=== PATIENT | male | born 1940 | race Caucasian/White ===

== ENCOUNTER 2017-08-02 07:57 | Emergency (ER) | payer MEDICARE, BC ==
[2017-08-02] MEDS ORDERED: Aspirin Low Dose CHEW TAB* 81 MG PO ONE (08:15)
[2017-08-02 08:46] LABS: Hematocrit 44 % (42-52); Hemoglobin 14.6 g/dl (14.0-18.0); Mean Corpuscular HGB Conc 33 g/dl (31-36); Mean Corpuscular Hemoglobin 32 pg (27-31); Mean Corpuscular Volume 97 fL (80-94); Mean Platelet Volume 7 um3 (7.4-10.4); Red Blood Count 4.52 10^6/ul (4.0-5.4); Red Cell Distribution Width 14 % (10.5-15); White Blood Count 9.2 10^3/ul (3.5-10.8)
[2017-08-02 09:02] LABS: Albumin 3.8 g/dL (3.2-5.2); BUN/Creatinine Ratio 18.7 (8-20); Calcium 9.2 mg/dL (8.6-10.3); EGFR African American 86.6 (>60); EGFR Non-African American 67.4 (>60); Globulin 3.1 g/dL (2-4); Magnesium 1.7 mg/dL (1.9-2.7); Potassium 4.6 mmol/L (3.5-5.0); Total Bilirubin 0.9 mg/dL (0.2-1.0); Total Protein 6.9 g/dL (6.4-8.9)
--- NOTE | 2017-08-02 09:07 | RAD ---
INDICATION: Chest pain COMPARISON: Most recent comparison chest x-ray July 21, 2014 TECHNIQUE: PA and lateral views of the chest were obtained. FINDINGS: Stable postoperative findings include sternotomy wires and surgical clips overlying the mediastinum. The heart and mediastinum are normal in size and contour. The lungs are grossly clear. There is no evidence of large pleural effusion. Visualized bones are normal for the patient's age. There is no radiographic evidence of free air beneath the diaphragm IMPRESSION: No radiographic evidence of acute cardiopulmonary disease.
[2017-08-02 09:54] LABS: TSH (Thyroid Stimulating Horm) 3.17 mcIU/mL (0.34-5.60)
[2017-08-02] MEDS ORDERED: Nitroglycerin TAB 0.4 MG* 0.4 MG TAB SL PRN (10:03)
[2017-08-02] MEDS ORDERED: Magnesium Oxide TAB* 400 MG PO ONE (10:04)
[2017-08-02 12:02] VITALS: BP 162/90
--- NOTE | 2017-08-02 12:07 | ED ---
Junaid Gonzlaez Abhishek, scribed for Gerson Ramírez MD on 08/02/17 at 0830 . Complex/Multi-Sys Presentation - HPI Summary HPI Summary: This patient is a 77 year old M presenting to [facility] accompanied by female with c /o of chest pain, [facility] and abd pain since 07/31/17 0800. Pt states symptoms similar previous [place] 3 years ago. Pain is described as intermittent in intensity but general discomfort present constantly. The patient rates the pain 2/10 in severity. Symptoms aggravated by nothing. Symptoms alleviated by nothing. Pt states that the pain does not radiate and reports he has had a catheter inserted previously as well a quad bypass (3 years ago), but no stents. Patient also reports indigestion, and decreased appetite. Patient denies N/V, diaphoresis. Pt has taken the following medication(s): Aspirin. - History Of Current Complaint Hx Obtained From: Patient Onset/Duration: Gradual Onset, Lasting Days - since 07/31/17 0800, Still Present Timing: Constant - general discomofrt, Intermittent, Lasting: Severity Currently: Mild Severity Initially: Mild Aggravating Factor(s): nothing Alleviating Factor(s): nothing Associated Signs And Symptoms: Positive: Chest Pain - chest "burning", Abdominal Pain - "upset stomach". Negative: Back Pain - Allergies/Home Medications Allergies/Adverse Reactions: Allergies Allergy/AdvReac Type Severity Reaction Status Date / Time Levofloxacin [From Levaquin] Allergy Anaphylatic Verified 08/02/17 08:02 Shock Home Medications: Home Medications metFORMIN* 100 mg PO QPM 08/02/17 [History Confirmed 08/02/17] PMH/Surg Hx/FS Hx/Imm Hx Endocrine/Hematology History: Reports: Hx Diabetes, Other Endocrine/ Hematological Disorders - DISTAL PANCREATECTOMY Cardiovascular History: Reports: Hx Congestive Heart Failure, Hx Hypertension - ON MEDICATION FOR Denies: Hx Pacemaker/ICD Respiratory History: Reports: Hx Asthma - HX OF, Hx Seasonal Allergies, Hx Sleep Apnea - CPAP user, Other Respiratory Problems/Disorders - smoker many years/ quit s, sleep apnea CPAP GI History: Reports: Hx Diverticulosis, Other GI Disorders - POLYPECTOMY (COLON) History: Reports: Other Problems/Disorders - TURP Denies: Hx Renal Disease Musculoskeletal History: Reports: Hx Arthritis, Hx Back Problems, Hx Orthopedic Injury - (left) should tendon repair-unsuccessful 2002, Other Musculoskeletal History - ROTATOR CUFF REPAIN Sensory History: Reports: Hx Contacts or Glasses, Hx Vision Problem - vision "dimming" per Pt (mostly at night), Other Sensory Impairments - 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 Denies: Hx Hearing Aid Opthamlomology History: Reports: Hx Contacts or Glasses, Hx Vision Problem - vision "dimming" per Pt (mostly at night), Other Sensory Impairments - 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 Neurological History: Reports: 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, Other Neuro Impairments/Disorders - 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, lumbar stenosis Psychiatric History: Denies: Hx Panic Disorder - Cancer History Cancer Type, 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 - Surgical History Surgery Procedure, Year, and Place: 1958 SPINAL FUSION L4-S1,1996 DECOMPRESSIVE LAMINECTOMY, L1-L4, [facility]; Cyst removed from right thumb at [facility] POLYPECTOMY,1999 BLADDER DIVERTICULUM EXCISION, [id number] TRANSURETHRAL RESECTION OF PROSTATE, [facility] COLONOSCOPY, [id number] SPERMATOCELE EXCISION, [id number] LEFT SHOULDER ROTATOR CUFF REPAIR AND DECOMPRESSION, [id number] COLONOSCOPY WITH POLYPECTOMY, [id number] PANCREAS BIOPSY, 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 Hx Anesthesia Reactions: No Infectious Disease History: No Infectious Disease History: Reports: Hx Shingles Denies: Traveled Outside the US in Last 30 Days - Family History Known Family History: Positive: Cardiac Disease - [place] (son), Hypertension - Mother, Other - Colon cancer (Father) - Social History Alcohol Use: None Substance Use Type: Reports: None Smoking Status (MU): Former Smoker Type: Cigarettes Amount Used/How Often: 2 PPD X 30 + YEARS Have You Smoked in the Last Year: No Review of Systems Negative: Skin Diaphoresis Eyes: Negative ENT: Negative Positive: Chest Pain - chest "burning" Respiratory: Negative Positive: Abdominal Pain - "upset stomach", Other - Decreased appetite, and indigestion. Negative: Vomiting, Nausea Genitourinary: Negative Positive: Other - Negative back pain Skin: Negative Positive: Headache Psychological: Normal All Other Systems Reviewed And Are Negative: Yes Physical Exam - Summary Physical Exam Summary: VITAL SIGNS: Reviewed. GENERAL: ~Patient is a well-developed and nourished (MALE) who is lying comfortable in the stretcher. ~Patient is not in any acute respiratory distress. HEAD AND FACE: No signs of trauma. ~No ecchymosis, hematomas or skull depressions. No sinus tenderness. EYES: PERRLA, EOMI x 2, No injected conjunctiva, no nystagmus. EARS: Hearing grossly intact. Ear canals and tympanic membranes are within normal limits. MOUTH: Oropharynx within normal limits. NECK: Supple, trachea is midline, no adenopathy, no JVD, no carotid bruit, no c- spine tenderness, neck with full ROM. CHEST: Symmetric, no tenderness at palpation LUNGS: Clear to auscultation bilaterally. No wheezing or crackles. CVS: Regular rate and rhythm, S1 and S2 present, no murmurs or gallops appreciated. ABDOMEN: Soft, non-tender. No signs of distention. No rebound no guarding, and no masses palpated. Bowel sounds are normal. EXTREMITIES: FROM in all major joints, no edema, no cyanosis or clubbing. NEURO: Alert and oriented x 3. No acute neurological deficits. Speech is normal and follows commands. SKIN: Dry and warm Triage Information Reviewed: Yes Vital Signs On Initial Exam: Initial Vitals Temp Pulse Resp BP Pulse Ox 97.8 F 62 16 179/109 98 08/02/17 07:58 08/02/17 07:58 08/02/17 07:58 08/02/17 07:58 08/02/17 07:58 Vital Signs Reviewed: Yes - [place] Coma Scale Coma Scale Total: 15 Diagnostics - Vital Signs Vital Signs Temp Pulse Resp BP Pulse Ox 08/02/17 08:11 74 206/153 95 08/02/17 08:10 124 92 08/02/17 07:58 97.8 F 62 16 179/109 98 - Laboratory Lab Results: Lab Results 08/02/17 08/02/17 08/02/17 Range/Units 08:32 08:32 08:32 WBC 9.2 (3.5-10.8) 10^3/ul RBC 4.52 (4.0-5.4) 10^6/ul Hgb 14.6 (14.0-18.0) g/dl Hct 44 (42-52) % MCV 97 H (80-94) fL MCH 32 H (27-31) pg MCHC 33 (31-36) g/dl RDW 14 (10.5-15) % Plt Count 405 (150-450) 10^3/ul MPV 7 L (7.4-10.4) um3 Neut % (Auto) 73.4 (38-83) % Lymph % (Auto) 11.8 L (25-47) % [place] % (Auto) 10.5 H (1-9) % Eos % (Auto) 3.1 (0-6) % Baso % (Auto) 1.2 (0-2) % Absolute Neuts (auto) 6.7 (1.5-7.7) 10^3/ul Absolute Lymphs (auto) 1.1 (1.0-4.8) 10^3/ul Absolute Monos (auto) 1.0 H (0-0.8) 10^3/ul Absolute Eos (auto) 0.3 (0-0.6) 10^3/ul Absolute Basos (auto) 0.1 (0-0.2) 10^3/ul Absolute Nucleated RBC 0.01 10^3/ul Nucleated RBC % 0.1 APTT 32.9 (26.0-36.3) seconds Sodium (133-145) mmol/L Potassium (3.5-5.0) mmol/L Chloride (101-111) mmol/L Carbon Dioxide (22-32) mmol/L Anion Gap (2-11) mmol/L BUN (6-24) mg/dL Creatinine (0.67-1.17) mg/dL Est GFR ( Amer) (>60) Est GFR (Non-Af Amer) (>60) BUN/Creatinine Ratio (8-20) Glucose (70-100) mg/dL Lactic Acid (0.5-2.0) mmol/L Calcium (8.6-10.3) mg/dL Magnesium (1.9-2.7) mg/dL Total Bilirubin (0.2-1.0) mg/dL AST (13-39) U/L ALT (7-52) U/L Alkaline Phosphatase (34-104) U/L Total Creatine Kinase (10-223) U/L CK-MB (CK-2) (0.6-6.3) ng/mL Troponin I (<0.04) ng/mL B-Natriuretic Peptide 28 ( - 100) pg/mL Total Protein (6.4-8.9) g/dL Albumin (3.2-5.2) g/dL Globulin (2-4) g/dL Albumin/Globulin Ratio (1-3) TSH (0.34-5.60) mcIU/mL 08/02/17 08/02/17 Range/Units 08:32 08:32 WBC (3.5-10.8) 10^3/ul RBC (4.0-5.4) 10^6/ul Hgb (14.0-18.0) g/dl Hct (42-52) % MCV (80-94) fL MCH (27-31) pg MCHC (31-36) g/dl RDW (10.5-15) % Plt Count (150-450) 10^3/ul MPV (7.4-10.4) um3 Neut % (Auto) (38-83) % Lymph % (Auto) (25-47) % [place] % (Auto) (1-9) % Eos % (Auto) (0-6) % Baso % (Auto) (0-2) % Absolute Neuts (auto) (1.5-7.7) 10^3/ul Absolute Lymphs (auto) (1.0-4.8) 10^3/ul Absolute Monos (auto) (0-0.8) 10^3/ul Absolute Eos (auto) (0-0.6) 10^3/ul Absolute Basos (auto) (0-0.2) 10^3/ul Absolute Nucleated RBC 10^3/ul Nucleated RBC % APTT (26.0-36.3) seconds Sodium 129 L (133-145) mmol/L Potassium 4.6 (3.5-5.0) mmol/L Chloride 98 L (101-111) mmol/L Carbon Dioxide 23 (22-32) mmol/L Anion Gap 8 (2-11) mmol/L BUN 20 (6-24) mg/dL Creatinine 1.07 (0.67-1.17) mg/dL Est GFR ( Amer) 86.6 (>60) Est GFR (Non-Af Amer) 67.4 (>60) BUN/Creatinine Ratio 18.7 (8-20) Glucose 274 H (70-100) mg/dL Lactic Acid 2.9 H* (0.5-2.0) mmol/L Calcium 9.2 (8.6-10.3) mg/dL Magnesium 1.7 L (1.9-2.7) mg/dL Total Bilirubin 0.90 (0.2-1.0) mg/dL AST 21 (13-39) U/L ALT 21 (7-52) U/L Alkaline Phosphatase 69 (34-104) U/L Total Creatine Kinase 101 (10-223) U/L CK-MB (CK-2) 7.1 H (0.6-6.3) ng/mL Troponin I 0.00 (<0.04) ng/mL B-Natriuretic Peptide ( - 100) pg/mL Total Protein 6.9 (6.4-8.9) g/dL Albumin 3.8 (3.2-5.2) g/dL Globulin 3.1 (2-4) g/dL Albumin/Globulin Ratio 1.2 (1-3) TSH 3.17 (0.34-5.60) mcIU/mL Result Diagrams: 08/02/17 08:32 08/02/17 08:32 Lab Statement: Any lab studies that have been ordered have been reviewed, and results considered in the medical decision making process. - Radiology Chest x-ray Radiology Interpretation Completed By: Radiologist - CXR reveals, per radiologist, No radiographic evidence of acute cardiopulmonary disease. ED physician has reviewed this radiology report and agrees. - EKG 0819 EKG Interpretation: 0819: Sinus rhythm, 63 beats per minute, no st elevation, and normal axis Complex Multi-Symp Course/Dx Assessment/Plan: In the ED course an IV access was obtained. Patient was placed in a vehicle monitor technician. Patient was given an ASA since he reports this are the same symptoms as when he had his [place] 3 years ago. Patient was given NTG for the CP. Labs without any significant abnormality except for Na 129, glucose 274, magnesium 1.7 for which he was given magnesium po. Troponin #1: and Troponin # 2 (4 hours later): EKG shows a NSR w/o ST elevations. CXR impression: No acute pathology. Initially patient was hypertensive and BP now is 151/82. Because comorbidities patient needs to be r/o ACS. I discuss my physical exam, findings and test results with Dr. Maki from the hospitalist services and she agrees to admit patient to his services. Patient is hemodynamically stable alert and oriented x 3. After patient accepted for admission he reports that he does not want to stay. He will sign AMA. I extensively discussed with the patient the benefits and risk of leaving AMA. I also discussed the alternatives to leaving AMA, however, the patient still insist to leave the hospital AMA.. The primary nurse and the charge nurse also strongly recommended that the patient should not leave AMA. Patient understands the risk of leaving AMA, which includes but is not restricted to . Patient is Alert and oriented times three and patient verbalizes understanding. Patient has full capacity and is cognitively intact. Patient signed the AMA form. Patient was also advised to return to ED if he changes his mind or if the symptoms worsen or other symptoms appear. Patient understands and agrees. - Diagnoses Differential Diagnoses/HQI/PQRI: Cardiac Ischemia, Other - ACS, angina, pulmonary edema Provider Diagnoses: CP r/o ACS, Left against medical advice - Physician Notifications Discussed Care Of Patient With: Avani Mercedes - Provider accepts patient care Time Discussed With Above Provider: 10:00 Instructed by Provider To: Admit As Inpatient Discharge - Discharge Plan Condition: Stable Disposition: [facility]MITTED TO [facility] Patient Education Materials: Against Medical Advice (ED) Referrals: Brian Gardner MD [Primary Care Provider] - The documentation as recorded by the Junaid white Abhishek accurately reflects the service I personally performed and the decisions made by me, Gerson Ramírez MD.
== END 2017-08-02 12:24 | disposition short-term general hospital (02) ==
LOC: ED 07:57 → MEDTELE 10:20 → UNDOADMOB 10:20 → ED 12:24
DX: R07.9 Chest pain, unspecified (principal); R51 Headache; Z87.891 Personal history of nicotine dependence
CPT/HCPCS: 36415; 71020; 80053; 82550; 82553; 83605; 83735; 83880; 84443; 84484; 85025; 85730; 93005; 99284; A9270-GY

== ENCOUNTER 2019-07-28 15:54 | Emergency (ER) | payer MEDICARE, BC ==
--- OUTSIDE RECORDS SUMMARY | 2019-07-28 16:24 | XMS REPORT ---
:1940 Author Organization [facility] Care Team Providers Name Role Phone Unavailable Unavailable Unavailable Problems This patient has no known problems. Allergies, Adverse Reactions, Alerts Allergy Allergy Status Severity Reaction(s) Onset Inactive Treating Comments Name Type Date Date Clinician Unknown None Active Unknown None Unknown No Known Allergies For This Patient Medications Ordered Filled Start Stop Current Ordering Indication Dosage Frequency Signature Comments Components Medication Medication Date Date Medication? Clinician (SIG) Name Name No Known No Known No None None None Medications Medications For This For This Patient Patient Procedures This patient has no known procedures. Results This patient has no known results.
--- OUTSIDE RECORDS SUMMARY | 2019-07-28 16:24 | XMS REPORT ---
:1940 Author Organization [facility] Care Team Providers Name Role Phone Unavailable [...]
--- OUTSIDE RECORDS SUMMARY | 2019-07-28 16:24 | XMS REPORT ---
:1940 Author Organization [facility] Care Team Providers Name Role Phone Unavailable [...]
--- NOTE | 2019-07-28 16:36 | ED ---
Lower Extremity - HPI Summary HPI Summary: Patient is a 79 y/o M presenting to the ED for a chief complaint of pain in the left calf for the last week. Patient recently drove to [place] and back approximately [address] about one week ago. He states the left calf pain began before his trip to [place]. Patient describes the left calf pain as occurring when exercising and walking with a cramping and tight sensation. The calf pain is not alleviated with stretching the calf. Patient admits he typically goes to the gym and exercises on an elliptical for 30 minutes, but has not done so for the last month. On triage, patient rates the pain as 5/10 in severity. Patient denies wounds or swelling in the left LE. PMHx is significant for a right shoulder problem, [place], and sarcoma of the right LE. PSHx is significant for a CABG 2 years ago. PCP was notified by the patient and sent the patient to [facility] for an US. Patient takes 81 mg aspirin, but denies taking Plavix. - History of Current Complaint Chief Complaint: EDExtremityLower Stated Complaint: LT LET PAIN PER PT Time Seen by Provider: 07/28/19 16:17 Hx Obtained From: Patient Mechanism Of Injury: Other - None Onset of Pain: Immediate Onset/Duration: Days Severity Initially: Moderate Severity Currently: Moderate Pain Intensity: 5 Pain Scale Used: 0-10 Numeric Timing: Intermittent, Lasting Days Character Of Pain: Spasmodic - Cramping and tightness Associated Signs And Symptoms: Negative: Swelling - Left LE Aggravating Factor(s): Movement Alleviating Factor(s): Nothing Able to Bear Weight: Yes - Allergies/Home Medications Allergies/Adverse Reactions: Allergies Allergy/AdvReac Type Severity Reaction Status Date / Time levofloxacin Allergy Severe Anaphylatic Verified 07/28/19 16:23 Shock Home Medications: Home Medications Omeprazole CAP (NF) [Prilosec CAP* 20 MG] 20 mg PO DAILY 07/28/19 [History Confirmed 07/28/19] Rosuvastatin (NF) [Crestor (NF)] 5 mg PO DAILY 07/28/19 [History Confirmed 07/28] metFORMIN* [Glucophage 500 MG TAB *] 1,000 mg PO BID 07/28/19 [History Confirmed 07/28/19] PMH/Surg Hx/FS Hx/Imm Hx Previously Healthy: Yes Endocrine/Hematology History: Reports: Hx Diabetes, Other Endocrine/ Hematological Disorders - DISTAL PANCREATECTOMY Cardiovascular History: Reports: Hx Angina, Hx Congestive Heart Failure, Hx Hypertension - ON MEDICATION FOR, Hx Myocardial Infarction Denies: Hx Pacemaker/ICD, Hx Valvular Heart Disease Respiratory History: Reports: Hx Asthma - HX OF, Hx Seasonal Allergies, Hx Sleep Apnea - CPAP user, Other Respiratory Problems/Disorders - smoker many years/ quit 90s, sleep apnea CPAP Denies: Hx Chronic Obstructive Pulmonary Disease (COPD) GI History: Reports: Hx Diverticulosis, Other GI Disorders - POLYPECTOMY (COLON) History: Reports: Other Problems/Disorders - TURP Denies: Hx Renal Disease Musculoskeletal History: Reports: Hx Arthritis, Hx Back Problems, Hx Orthopedic Injury - (left) should tendon repair-unsuccessful 2002, Other Musculoskeletal History - ROTATOR CUFF REPAIN Sensory History: Reports: Hx Contacts or Glasses, Hx Vision Problem - vision "dimming" per Pt (mostly at night), Other Sensory Impairments - 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 Denies: Hx Legally Blind, Hx Deafness, Hx Hearing Aid Opthamlomology History: Reports: Hx Contacts or Glasses, Hx Vision Problem - vision "dimming" per Pt (mostly at night), Other Sensory Impairments - 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 Denies: Hx Legally Blind EENT History: Denies: Hx Deafness Neurological History: Reports: 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, Other Neuro Impairments/Disorders - 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, lumbar stenosis Psychiatric History: Denies: Hx Panic Disorder - Cancer History Cancer Type, 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 - Surgical History Surgical History: Yes Surgery Procedure, Year, and Place: 1958 SPINAL FUSION L4-S1,1996 DECOMPRESSIVE LAMINECTOMY, L1-L4, [facility]; Cyst removed from right thumb at [facility] POLYPECTOMY,1999 BLADDER DIVERTICULUM EXCISION, [id number] TRANSURETHRAL RESECTION OF PROSTATE, [facility] 2010 COLONOSCOPY, [id number] SPERMATOCELE EXCISION, [id number] LEFT SHOULDER ROTATOR CUFF REPAIR AND DECOMPRESSION, [id number] COLONOSCOPY WITH POLYPECTOMY, [id number] PANCREAS BIOPSY, 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 Hx Anesthesia Reactions: No Infectious Disease History: No Infectious Disease History: Reports: Hx Shingles Denies: Hx Tuberculosis, History Other Infectious Disease, Traveled Outside the US in Last 30 Days - Family History Known Family History: Positive: Cardiac Disease - [place] (son), Hypertension - Mother, Other - Colon cancer (Father) - Social History Occupation: Retired Lives: With Family Alcohol Use: None Hx Substance Use: No Substance Use Type: Reports: None Hx Tobacco Use: Yes Smoking Status (MU): Former Smoker Type: Cigarettes Amount Used/How Often: 2 PPD X 30 + YEARS Have You Smoked in the Last Year: No Review of Systems Positive: Myalgia - Left calf. Negative: Edema - Left LE Positive: Other - Negative wounds on the left calf All Other Systems Reviewed And Are Negative: Yes Physical Exam - Summary Physical Exam Summary: Constitutional: Well-developed, Well-nourished, Alert. (-) Distressed Skin: Warm, Dry HENT: Normocephalic; Atraumatic Eyes: Conjunctiva normal Neck: Musculoskeletal ROM normal neck. (-) JVD, (-) Stridor, (-) Tracheal deviation Cardio: Rhythm regular, rate normal, Heart sounds normal; Intact distal pulses; The pedal pulses are 2+ and symmetric. Radial pulses are 2+ and symmetric. Pulmonary/Chest wall: Effort normal. (-) Respiratory distress, (-) Wheezes, (-) Rales Abd: Soft, (-) tenderness, (-) Distension, (-) Guarding, (-) Rebound Musculoskeletal: (-) Edema. Left pulses in the left leg are poor compared to right; left LE is warm and well perfused. Not able to palpate PT pulse, bounding in DP pulse in the left calf. Right PT pulse intact. Neuro: Alert, Oriented x3 Psych: Mood and affect Normal Triage Information Reviewed: Yes Vital Signs On Initial Exam: Initial Vitals Temp Pulse Resp BP Pulse Ox 98.3 F 63 16 159/95 96 07/28/19 15:59 07/28/19 15:59 07/28/19 15:59 07/28/19 15:59 07/28/19 15:59 Vital Signs Reviewed: Yes Procedures - Sedation Patient Received Moderate/Deep Sedation with Procedure: No Diagnostics - Vital Signs Vital Signs Temp Pulse Resp BP Pulse Ox 07/28/19 15:59 98.3 F 63 16 159/95 96 - Laboratory Result Diagrams: 07/28/19 16:39 07/28/19 16:39 Lab Statement: Any lab studies that have been ordered have been reviewed, and results considered in the medical decision making process. - Radiology Venous Doppler Study Radiology Interpretation Completed By: Radiologist Summary of Radiographic Findings: Venous Doppler Study IMPRESSION: NO LEFT LOWER EXTREMITY DEEP VEIN THROMBOSIS. Reviewed by Dr. Smith. - EKG 16:36 Cardiac Rate: NL - 60 BPM EKG Rhythm: Sinus Rhythm ST Segment: Normal Ectopy: None Summary of EKG Findings: An EKG at 16:36 reveals 60 BPM with normal sinus rhythm , nml axis, nml intervals. No STEMI. No acute changes. Nonspecific intraventricular conduction delay which is not new compared to prior EKG on . Reviewed and interpreted by Dr. Smith. Lower Extremity Course/Dx - Course Course Of Treatment: Patient is a 79 y/o M presenting to the ED for a chief complaint of pain in the left calf for the last week. Patient recently drove to [place], [place] and back approximately [address] about one week ago. He states the left calf pain began before his trip to [place], [place]. Patient describes the left calf pain as occurring when exercising and walking with a cramping and tight sensation. The calf pain is not alleviated with stretching the calf. Patient admits he typically goes to the gym and exercises on an elliptical for 30 minutes, but has not done so for the last month. On triage, patient rates the pain as 5/10 in severity. Patient denies wounds or swelling in the left LE. PMHx is significant for a right shoulder problem, [place], and sarcoma of the right LE. PSHx is significant for a CABG 2 years ago. PCP was notified by the patient and sent the patient to [facility] for an US. Patient takes 81 mg aspirin, but denies taking Plavix. On exam, left pulses in the left leg are poor compared to right; left LE is warm and well perfused. Not able to palpate PT pulse, bounding in DP pulse in the left calf. Right PT pulse intact. In the ED course , patient was given iodixanol 125 ml IV. An EKG at 16:36 reveals 60 BPM with normal sinus rhythm, nml axis, nml intervals. No STEMI. No acute changes. Nonspecific intraventricular conduction delay which is not new compared to prior EKG on 08/02/17. Venous Doppler Study IMPRESSION: NO LEFT LOWER EXTREMITY DEEP VEIN THROMBOSIS. All other abnormal lab results are not pertinent to current cc. Patient will be a sign-out at 19:00 on 07/28/[address] Severiano Lafleur MD from Dr. Brad Smith MD at shift change, pending further workup, imaging, and disposition. - Diagnoses Provider Diagnoses: Leg pain Discharge ED - Sign-Out/Discharge Documenting (check all that apply): Sign-Out Patient Signing out patient TO: Severiano Lafleur - 19:00 on 07/28/19 - Discharge Plan Condition: Stable Referrals: Brian Gardner MD [Primary Care Provider] - - Attestation Statements Document Initiated by Scribe: Yes Documenting Scribe: Sana Carrasco Provider For Whom Scribe is Documenting (Include Credential): Brad Smith MD Scribe Attestation: I, Sana Carrasco, scribed for Brad Smith MD on 07/28/19 at 1951. Status of Scribe Document: Ready
[2019-07-28 16:51] LABS: ABS Basophils 0.1 10^3/ul (0-0.2); ABS Eosinophils 0.9 10^3/ul (0-0.6); ABS Lymphocytes 1.6 10^3/ul (1.0-4.8); ABS Monocytes 1.5 10^3/ul (0-0.8); ABS Neutrophils 5.9 10^3/ul (1.5-7.7); Eosinophil % 9.1 %; Hematocrit 42 % (42-52); Hemoglobin 14.1 g/dL (14.0-18.0); Lymphocyte % 16.4 %; Mean Corpuscular HGB Conc 33 g/dL (31-36); Mean Corpuscular Hemoglobin 32 pg (27-31); Mean Corpuscular Volume 97 fL (80-94); Mean Platelet Volume 7.2 fL (7.4-10.4); Nucleated Red Blood Cells % 0.1; Platelet Count 365 10^3/uL (150-450); Red Blood Count 4.38 10^6 /uL (4.18-5.48); Red Cell Distribution Width 14 % (10-15)
[2019-07-28 16:57] LABS: Activated Partial Thrombo Time 37.9 seconds (26.0-38.0); INR 0.96 (0.82-1.09)
[2019-07-28 17:03] LABS: BUN/Creatinine Ratio 24.5 (8-20); Calcium 9.3 mg/dL (8.6-10.3); EGFR Non-African American 49.5 (>60)
[2019-07-28 17:15] LABS: Potassium 5.5 mmol/L (3.5-5.0)
[2019-07-28] MEDS ORDERED: Iodixanol* (CONTRAST) 320 MG/ML 100 ML SDV IV ONE (17:52)
--- NOTE | 2019-07-28 19:12 | ED ---
Progress - Progress Note Progress Note: Patient is received as a sign-out from Dr. Smith to Dr. Lafleur at 1899 shift change pending BLE CTA. RIGHT LOWER EXTREMITY CTA IMPRESSION: 1. Mild to moderately atherosclerotic right lower extremity arteries. Nonvisualized flow within the right distal calf and foot most likely due to contrast timing, although triple vessel peripheral artery disease is present. 2. Bosniak type I renal cysts. No followup indicated. 3. Diverticulosis coli. 4. Posterior lateral right bladder reticulum. LEFT LOWER EXTREMITY CTA IMPRESSION: 1. Mild to moderately atherosclerotic left lower extremity arteries with continued flow into the foot via the posterior tibial artery. Decreased distal flow likely related to study timing. 2. Bosniak type I renal cyst. No followup indicated. 3. Diverticulosis coli. 4. Posterior lateral right bladder diverticulum. THIS REPORT WAS REVIEWED BY DR. LAFLEUR. 2045 - Patient reports that he has persistent pain of his left calf. Pain has been present for the past week. Patient believes that Sx were aggravated by having [place]. He was concerned for DVT. PSHx of quadruple CABG is noted. CTA results were discussed with the patient. He was advised to follow up with vascular surgery. Patient is agreeable with discharge to home. Re-Evaluation - Re-Evaluation First Eval Re-Evaluation Time: 20:46 Comment: 2045 - Patient reports that he has persistent pain of his left calf. Pain has been present for the past week. Patient believes that Sx were aggravated by having [place] an extended [place] nature trail. He was concerned for DVT. PSHx of quadruple CABG is noted. CTA results were discussed with the patient. He was advised to follow up with vascular surgery. Patient is agreeable with discharge to home. Course/Dx - Course Course Of Treatment: Patient is received as a sign-out from Dr. Smith to Dr. Lafleur at 189907/28/19 shift change pending BLE CTA. RIGHT LOWER EXTREMITY CTA IMPRESSION: 1. Mild to moderately atherosclerotic right lower extremity arteries. Nonvisualized flow within the right distal calf and foot most likely due to. contrast timing, although triple vessel peripheral artery disease is present. 2. Bosniak type I renal cysts. No followup indicated. 3. Diverticulosis coli. 4. Posterior lateral right bladder reticulum. LEFT LOWER EXTREMITY CTA IMPRESSION: 1. Mild to moderately atherosclerotic left lower extremity arteries with. continued flow into the foot via the posterior tibial artery. Decreased distal. flow likely related to study timing. 2. Bosniak type I renal cyst. No followup indicated. 3. Diverticulosis coli. 4. Posterior lateral right bladder diverticulum. 2045 - Patient reports that he has persistent pain of his left calf. Pain has been present for the past week. Patient believes that Sx were aggravated by having done an extended walk [place] a nature trail. He was concerned for DVT. PSHx of quadruple CABG is noted. CTA results were discussed with the patient. He was advised to follow up with vascular surgery. Patient is agreeable with discharge to home. - Diagnoses Provider Diagnoses: Peripheral vascular disease of lower extremity Discharge ED - Sign-Out/Discharge Documenting (check all that apply): Patient Departure - discharge , Receiving Sign-Out Receiving patient FROM: Brad Smith - Discharge Plan Condition: Good Disposition: HOME Patient Education Materials: Peripheral Vascular Disease (ED) Referrals: Brian Gardner MD [Primary Care Provider] - As Soon As Possible Additional Instructions: I think your pain may be coming from narrowing in the arteries of the lower extremities. The CTA did not show complete blockage but there is likely some diminished flow that could be corrected surgically. We do not have a vascular surgery service here at [facility] [place], but you can ask your doctor to refer you to a vascular surgeon in [place]. - Billing Disposition and Condition Condition: GOOD Disposition: Home - Attestation Statements Document Initiated by Adrienne: Yes Documenting Scribe: ALYSSA GIFFORD Provider For Whom Adrienne is Documenting (Include Credential): LIVE LAFLEUR MD Scribe Attestation: I, ALYSSA GIFFORD, scribed for LIVE LAFLEUR MD on 07/29/19 at 1837. Scribe Documentation Reviewed: Yes Provider Attestation: The documentation as recorded by the ALYSSA white accurately reflects the service I personally performed and the decisions made by me, LIVE LAFLEUR MD Status of Scribe Document: Viewed
[2019-07-28 21:00] VITALS: BP 198/94
== END 2019-07-28 20:59 | disposition home or self-care (01) ==
LOC: ED 15:54
DX: I73.9 Peripheral vascular disease, unspecified (principal); E11.9 Type 2 diabetes mellitus without complications; I11.0 Hypertensive heart disease with heart failure; I50.9 Heart failure, unspecified; I25.2 Old myocardial infarction; Z87.891 Personal history of nicotine dependence; Z79.84 Long term (current) use of oral hypoglycemic drugs; Z79.899 Other long term (current) drug therapy; Z88.1 Allergy status to other antibiotic agents
CPT/HCPCS: 36415; 73706; 80048; 85025; 85610; 85730; 93005; 99282; Q9967

== ENCOUNTER 2024-02-21 11:43 | Inpatient (IN) ==
[2024-02-21 12:24] LABS: Hematocrit 40.8 % (38-53); Hemoglobin 13.6 g/dL (13.2-16.3); Mean Corpuscular Hemoglobin 33.5 pg (27-33); Mean Corpuscular Hgb Conc 33.4 g/dL (31-36); Mean Corpuscular Volume 100.2 fL (80-97); Mean Platelet Volume 7.4 fL (7.5-11.2); Platelet Count 302 10^3/uL (150-450); Red Blood Count 4.07 10^6/uL (4.06-5.63); Red Cell Distribution Width 15.1 % (12-17); White Blood Count 20.2 10^3/uL (3.6-10.2)
[2024-02-21 12:34] LABS: INR 1.29 (0.83-1.13)
[2024-02-21] MEDS: Morphine 4 MG/ML VIAL (1 ml) IV ONE ×3 (12:51→18:39)
[2024-02-21 13:06] LABS: ABS Basophils 0.1 10^3/uL (0.0-0.1); ABS Lymphocytes 0.5 10^3/uL (1.0-4.8); ABS Monocytes 1.6 10^3/uL (0.0-1.1); ABS Neutrophils 18.1 10^3/uL (1.5-7.6); ABS Nucleated RBC 0.02 10^3/ul; Lymphocyte % 2.3 %; Nucleated Red Blood Cells % 0.1 %/100WBC (0.0-0.8)
[2024-02-21 13:17] LABS: ALT 12 U/L (7-52); Albumin/Globulin Ratio 1.4 (1-3); Alkaline Phosphatase 86 U/L (35-149); Anion Gap 8 mmol/L (2-16); Blood Urea Nitrogen 29 mg/dL (6-24); C Reactive Protein 196.58 mg/L (<8.01); CO2 Carbon Dioxide 26 mmol/L (22-32); Calcium 8.6 mg/dL (8.6-10.3); Chloride 94 mmol/L (101-111); Globulin 2.8 g/dL (2-4); Glucose 174 mg/dL (70-100); Sodium 128 mmol/L (135-145); Total Bilirubin 2.7 mg/dL (0.2-1.0); Total Protein 6.8 g/dL (6.4-8.9); eGFR CKD-EPI 55.2 (>60)
[2024-02-21] MEDS: Iodixanol (CONTRAST) 320 MG/ML 100 ML SDV IV ONE (13:50)
[2024-02-21] MEDS: Piperacillin/Tazobac 3.375 BAG 3.375 GM/100 ML BAG IV ONE (14:57)
[2024-02-21] MEDS: Vancomycin 1,000 MG in NS 0.9% 250 ml 250 ML IVPB ONE (15:27)
[2024-02-21 15:51] LABS: Urine Appearance Clear; Urine Bilirubin Negative (Negative); Urine Blood Negative (Negative); Urine Color Light-Yellow; Urine Glucose Negative (Negative); Urine Ketones Negative (Negative); Urine Nitrite Negative (Negative); Urine Protein Trace (Negative); Urine Specific Gravity 1.021 (1.002-1.030); Urine Urobilinogen Negative (Negative); Urine pH 5.5 (5.0-8.0)
[2024-02-21] MEDS: Gadoteridol (CONTRAST) 279.3 MG/ML 10 ML IV ONE (16:36)
[2024-02-21 19:20] LABS: RBC Parasite Smear No Parasites Seen (No Parasite)
[2024-02-21] MEDS: HYDROmorphone 1 MG/1 ML SYRINGE IV ONE (22:18)
[2024-02-21] MEDS ORDERED: Vancomycin per Pharmacy 1 EA NOTE FOLLOW UP SCH (23:45)
[2024-02-21] MEDS ORDERED: Zosyn per Pharmacy NOTE FOLLOW UP SCH (23:45)
[2024-02-22] MEDS: Enoxaparin 40 MG/0.4 ML SYR SUBCUT SCH (01:09)
[2024-02-22] MEDS: ZOSYN 3.375 GM x ONE DOSE over 30 miuntes IV (01:35)
[2024-02-22] MEDS ORDERED: Dextrose 50% Syringe 50 ml 25 GM/50 ML SYRINGE IV PUSH PRN (02:01)
[2024-02-22 04:35] LABS: Hematocrit 37.3 % (38-53); Hemoglobin 12.6 g/dL (13.2-16.3); Mean Corpuscular Hemoglobin 33.7 pg (27-33); Mean Corpuscular Hgb Conc 33.7 g/dL (31-36); Mean Corpuscular Volume 100.1 fL (80-97); Mean Platelet Volume 7.2 fL (7.5-11.2); Platelet Count 278 10^3/uL (150-450); Red Blood Count 3.73 10^6/uL (4.06-5.63); Red Cell Distribution Width 15.5 % (12-17); White Blood Count 23.2 10^3/uL (3.6-10.2)
[2024-02-22 04:54] LABS: ABS Basophils 0.2 10^3/uL (0.0-0.1); ABS Lymphocytes 0.8 10^3/uL (1.0-4.8); ABS Monocytes 3.1 10^3/uL (0.0-1.1); ABS Nucleated RBC 0.01 10^3/ul; Eosinophil % 0.2 %; Lymphocyte % 3.4 %; Nucleated Red Blood Cells % 0.1 %/100WBC (0.0-0.8)
[2024-02-22 05:08] LABS: Albumin 3.3 g/dL (3.2-5.2); Albumin/Globulin Ratio 1.3 (1-3); C Reactive Protein 235.2 mg/L (<8.01); Calcium 8.1 mg/dL (8.6-10.3); Creatinine, Serum 1.33 mg/dL (0.67-1.17); Globulin 2.6 g/dL (2-4); Magnesium 1.9 mg/dL (1.9-2.7); Phosphorus 3.8 mg/dL (2.5-5.0); Potassium 4.9 mmol/L (3.5-5.0); Total Bilirubin 2.5 mg/dL (0.2-1.0); Total Protein 5.9 g/dL (6.4-8.9); eGFR CKD-EPI 53.7 (>60)
[2024-02-22] MEDS ORDERED: ZOSYN 3.375 GM Q8H per EXTENDED INFUSION IV SCH (06:00)
[2024-02-22] MEDS: Vancomycin 1,250 MG in NS 0.9% 250 ml 250 ML IVPB SCH (08:16)
[2024-02-22] MEDS: Sulfur Hexaflouride MICROSPHR 25 MG VIAL IV ONE (13:40)
[2024-02-22] MEDS: Magnesium Hydroxide LIQ 30 ML UDC PO PRN (21:40)
[2024-02-23 05:39] LABS: Hematocrit 36.3 % (38-53); Hemoglobin 12.3 g/dL (13.2-16.3); Mean Corpuscular Hemoglobin 33.4 pg (27-33); Mean Corpuscular Hgb Conc 33.9 g/dL (31-36); Mean Corpuscular Volume 98.5 fL (80-97); Mean Platelet Volume 7.5 fL (7.5-11.2); Platelet Count 297 10^3/uL (150-450); Red Blood Count 3.68 10^6/uL (4.06-5.63); Red Cell Distribution Width 14.7 % (12-17); White Blood Count 20.5 10^3/uL (3.6-10.2)
[2024-02-23 06:03] LABS: Albumin/Globulin Ratio 1.3 (1-3); Calcium 7.8 mg/dL (8.6-10.3); Creatinine, Serum 1.22 mg/dL (0.67-1.17); Globulin 2.4 g/dL (2-4); Magnesium 2.1 mg/dL (1.9-2.7); Potassium 4.2 mmol/L (3.5-5.0); Total Bilirubin 2.1 mg/dL (0.2-1.0); Total Protein 5.4 g/dL (6.4-8.9); eGFR CKD-EPI 59.6 (>60)
[2024-02-24] MEDS: hydrALAZINE 20 mg/ml 1 ML Vial IV IV SLOW PU ONE (02:52)
[2024-02-24] MEDS: Vancomycin Trough Check NOTE FOLLOW UP ONE (07:43)
[2024-02-24 07:51] LABS: Hematocrit 40.5 % (38-53); Hemoglobin 13.8 g/dL (13.2-16.3); Mean Corpuscular Hemoglobin 33.5 pg (27-33); Mean Corpuscular Volume 98.7 fL (80-97); Mean Platelet Volume 7.4 fL (7.5-11.2); Platelet Count 315 10^3/uL (150-450); Red Blood Count 4.11 10^6/uL (4.06-5.63); Red Cell Distribution Width 14.8 % (12-17); White Blood Count 20.2 10^3/uL (3.6-10.2)
[2024-02-24 08:00] LABS: ABS Basophils 0.1 10^3/uL (0.0-0.1); ABS Lymphocytes 0.6 10^3/uL (1.0-4.8); ABS Monocytes 1.9 10^3/uL (0.0-1.1); ABS Neutrophils 17.6 10^3/uL (1.5-7.6); ABS Nucleated RBC 0.02 10^3/ul; Eosinophil % 0.1 %; Lymphocyte % 3.1 %; Nucleated Red Blood Cells % 0.1 %/100WBC (0.0-0.8)
[2024-02-24] MEDS: Morphine ER 15 mg TAB ** extended release PO SCH (11:12)
[2024-02-24 12:38] LABS: Calcium 8.2 mg/dL (8.6-10.3); Creatinine, Serum 1.08 mg/dL (0.67-1.17); Potassium 4.3 mmol/L (3.5-5.0); eGFR CKD-EPI 68.9 (>60)
[2024-02-24 16:05] LABS: Anaplasma phagocytophilum Negative (Negative); B. miyamotoi PCR, B Negative (Negative); Babesia divergens/MO-1 Negative (Negative); Babesia ducani Negative (Negative); Ehrlichia chaffeensis Negative (Negative); Ehrlichia ewingii/canis Negative (Negative); Ehrlichia muris eauclairensis Negative (Negative)
[2024-02-24] MEDS: Insulin GLARGINE 100 un/ml 10 ml VIAL SUBCUT SCH (21:18)
[2024-02-24] MEDS: Morphine 2 MG/ML SYRINGE IV PRN (23:55)
[2024-02-25 07:25] LABS: Hematocrit 37.3 % (38-53); Hemoglobin 12.7 g/dL (13.2-16.3); Mean Corpuscular Hemoglobin 33.5 pg (27-33); Mean Corpuscular Hgb Conc 33.9 g/dL (31-36); Mean Platelet Volume 8.2 fL (7.5-11.2); Platelet Count 314 10^3/uL (150-450); Red Blood Count 3.77 10^6/uL (4.06-5.63); Red Cell Distribution Width 14.9 % (12-17); White Blood Count 20.6 10^3/uL (3.6-10.2)
[2024-02-25 07:52] LABS: Anion Gap 10 mmol/L (2-16); Blood Urea Nitrogen 34 mg/dL (6-24); CO2 Carbon Dioxide 27 mmol/L (22-32); Calcium 8.2 mg/dL (8.6-10.3); Chloride 91 mmol/L (101-111); Creatinine, Serum 1.14 mg/dL (0.67-1.17); Glucose 143 mg/dL (70-100); Potassium 4.1 mmol/L (3.5-5.0); Sodium 128 mmol/L (135-145); eGFR CKD-EPI 64.6 (>60)
[2024-02-25 07:57] LABS: CRP High Sensitivity > 80.00 mg/L (<2.00)
[2024-02-25] MEDS: Vancomycin 1,500 MG in NS 0.9% 250 ml 250 ML IVPB SCH (08:12)
[2024-02-25 10:09] LABS: C Reactive Protein 220.93 mg/L (<8.01)
[2024-02-25] MEDS: Morphine ER 30 mg TAB ** extended release PO SCH (10:27)
[2024-02-25] MEDS ORDERED: Naloxone 0.4 mg VIAL 0.4 mg/ml 1 ml VIAL ONE (11:36)
[2024-02-25] MEDS ORDERED: fentaNYL 100 mcg/2 ml 50 MCG/ML VIAL ONE (11:36)
[2024-02-25] MEDS ORDERED: Flumazenil 0.5 mg/5 ml 0.1 MG/ML 5 ml VIAL ONE (11:36)
[2024-02-25] MEDS ORDERED: Midazolam 5 mg/5 ml VIAL 1 mg/ml 5 ml VIAL (5 mg) ONE (11:36)
[2024-02-25] MEDS ORDERED: Morphine ER 30 mg TAB ** extended release PO SCH (21:00)
[2024-02-26 06:52] LABS: Hematocrit 34.9 % (38-53); Hemoglobin 11.7 g/dL (13.2-16.3); Mean Corpuscular Hemoglobin 33.1 pg (27-33); Mean Corpuscular Hgb Conc 33.5 g/dL (31-36); Mean Corpuscular Volume 98.7 fL (80-97); Mean Platelet Volume 7.9 fL (7.5-11.2); Platelet Count 343 10^3/uL (150-450); Red Blood Count 3.54 10^6/uL (4.06-5.63); Red Cell Distribution Width 14.7 % (12-17); White Blood Count 19.7 10^3/uL (3.6-10.2)
[2024-02-26 07:11] LABS: Calcium 7.6 mg/dL (8.6-10.3); Creatinine, Serum 1.49 mg/dL (0.67-1.17); Potassium 4.2 mmol/L (3.5-5.0); eGFR CKD-EPI 46.9 (>60)
[2024-02-26 10:19] LABS: Vitamin D Total 25(OH) 12.9 ng/mL (20-50)
[2024-02-26] MEDS: Lactated Ringers 1000 ml BAG 1,000 ML IV SCH (10:47)
[2024-02-26] MEDS ORDERED: Midazolam 5 mg/5 ml VIAL 1 mg/ml 5 ml VIAL (5 mg) ONE (11:59)
[2024-02-26] MEDS ORDERED: Lidocaine 2% PF 5 ML VIAL ONE (12:00)
[2024-02-26] MEDS ORDERED: Ondansetron 4 mg VIAL 2 MG/ML 2 ml VIAL ONE (12:00)
[2024-02-26] MEDS ORDERED: Phenylephrine IV 10 MG/ML 1 ml VIAL ONE (12:00)
[2024-02-26] MEDS ORDERED: KETAMINE HCL 10 MG/ML 20 ml VIAL (200 MG) ONE (12:01)
[2024-02-26] MEDS ORDERED: fentaNYL 100 mcg/2 ml 50 MCG/ML VIAL ONE (12:08)
[2024-02-26] MEDS ORDERED: Flumazenil 0.5 mg/5 ml 0.1 MG/ML 5 ml VIAL ONE (13:24)
[2024-02-26] MEDS: Calcium/Vitamin D TAB 250/125 TAB PO SCH (16:00)
[2024-02-26 17:04] LABS: Calcium 7.7 mg/dL (8.6-10.3); Creatinine, Serum 1.38 mg/dL (0.67-1.17); Potassium 3.9 mmol/L (3.5-5.0); eGFR CKD-EPI 51.4 (>60)
[2024-02-26] MEDS: Senna TAB 8.6 mg TAB PO PRN (22:32)
[2024-02-26] MEDS ORDERED: Magnesium CITRATE LIQ 300 ML BTL PO ONE (23:01)
[2024-02-27 08:11] LABS: Hematocrit 32.8 % (38-53); Mean Corpuscular Hemoglobin 33.1 pg (27-33); Mean Corpuscular Hgb Conc 33.5 g/dL (31-36); Mean Corpuscular Volume 98.9 fL (80-97); Mean Platelet Volume 7.7 fL (7.5-11.2); Platelet Count 367 10^3/uL (150-450); Red Blood Count 3.32 10^6/uL (4.06-5.63); Red Cell Distribution Width 14.9 % (12-17); White Blood Count 15.8 10^3/uL (3.6-10.2)
[2024-02-27 08:50] LABS: Anion Gap 8 mmol/L (2-16); Blood Urea Nitrogen 57 mg/dL (6-24); CO2 Carbon Dioxide 29 mmol/L (22-32); Calcium 7.5 mg/dL (8.6-10.3); Chloride 94 mmol/L (101-111); Creatinine, Serum 1.89 mg/dL (0.67-1.17); Glucose 140 mg/dL (70-100); Sodium 131 mmol/L (135-145); eGFR CKD-EPI 35.2 (>60)
[2024-02-27] MEDS: Vancomycin Trough Check NOTE FOLLOW UP ONE (09:04)
[2024-02-27] MEDS: Magnesium CITRATE LIQ 300 ML BTL PO ONE (09:04)
[2024-02-27] MEDS ORDERED: Naloxone 0.4 mg VIAL 0.4 mg/ml 1 ml VIAL IV PUSH PRN (11:21)
[2024-02-27] MEDS: Calcium Carb (TUMS) 500 mg CHEW TAB PO SCH (12:46)
[2024-02-27] MEDS: Senna TAB 8.6 mg TAB PO SCH ×2 (12:46→22:43)
[2024-02-27] MEDS: CALCIUM GLUCONATE 1GM/50ML NS 1 GM/50 ML BAG IV SCH (20:16)
[2024-02-27] MEDS: oxyCODONE SR 20 mg TAB PO SCH (22:46)
[2024-02-28] MEDS: SMOG Enema (MgOH-NS-Gly-MinO) 330 ML ENEMA PR ONE ×2 (00:52→19:11)
[2024-02-28] MEDS: Polyethylene Glycol 3350 17 GM PACKET PO SCH (06:09)
[2024-02-28 06:37] LABS: Hematocrit 31.6 % (38-53); Hemoglobin 10.8 g/dL (13.2-16.3); Mean Corpuscular Hemoglobin 33.4 pg (27-33); Mean Corpuscular Hgb Conc 34.1 g/dL (31-36); Mean Corpuscular Volume 97.9 fL (80-97); Mean Platelet Volume 7.6 fL (7.5-11.2); Platelet Count 433 10^3/uL (150-450); Red Blood Count 3.22 10^6/uL (4.06-5.63); White Blood Count 16.5 10^3/uL (3.6-10.2)
[2024-02-28 06:53] LABS: Calcium 7.9 mg/dL (8.6-10.3); Creatinine, Serum 2.52 mg/dL (0.67-1.17); Magnesium 2.5 mg/dL (1.9-2.7); Potassium 5.1 mmol/L (3.5-5.0); eGFR CKD-EPI 24.9 (>60)
[2024-02-28] MEDS: Magnesium Hydroxide LIQ 30 ML UDC PO SCH (08:33)
[2024-02-28] MEDS ORDERED: Morphine ER 30 mg TAB ** extended release PO SCH (09:00)
[2024-02-28] MEDS: CALCIUM GLUCONATE 1GM/50ML NS 1 GM/50 ML BAG IV ONE (10:00)
[2024-02-28] MEDS: Morphine ER 15 mg TAB ** extended release PO SCH (11:57)
[2024-02-28] MEDS: DAPTOMYCIN IVPB SCH (12:18)
[2024-02-28] MEDS: NS 0.9% IVPB SCH (12:18)
[2024-02-28] MEDS: Lactated Ringers 1000 ml BAG 1,000 ML IV SCH (19:30)
[2024-02-29 06:40] LABS: Hemoglobin 10.7 g/dL (13.2-16.3); Mean Corpuscular Hemoglobin 33.1 pg (27-33); Mean Corpuscular Hgb Conc 33.6 g/dL (31-36); Mean Corpuscular Volume 98.7 fL (80-97); Mean Platelet Volume 7.7 fL (7.5-11.2); Platelet Count 465 10^3/uL (150-450); Red Blood Count 3.24 10^6/uL (4.06-5.63); Red Cell Distribution Width 14.7 % (12-17); White Blood Count 14.4 10^3/uL (3.6-10.2)
[2024-02-29 07:15] LABS: Calcium 7.7 mg/dL (8.6-10.3); Creatinine, Serum 2.17 mg/dL (0.67-1.17); Magnesium 2.6 mg/dL (1.9-2.7); Potassium 4.5 mmol/L (3.5-5.0); eGFR CKD-EPI 29.8 (>60)
[2024-02-29 15:52] LABS: Urine Appearance Clear; Urine Bilirubin Negative (Negative); Urine Blood 3+ (Negative); Urine Color Light-Yellow; Urine Glucose Negative (Negative); Urine Ketones Negative (Negative); Urine Nitrite Negative (Negative); Urine Protein Negative (Negative); Urine Specific Gravity 1.007 (1.002-1.030); Urine Urobilinogen Negative (Negative); Urine pH 5.5 (5.0-8.0)
[2024-02-29 16:00] LABS: Urine Bacteria Absent /HPF (Absent); Urine Red Blood Cell 3+(>10/hpf) /HPF (0-Trace); Urine White Blood Cell Trace(0-5/hpf) /HPF (0-Trace)
[2024-02-29] MEDS: Enoxaparin 30 MG/0.3 ML SYR SUBCUT SCH (20:19)
[2024-03-01 07:40] LABS: Hemoglobin 10.4 g/dL (13.2-16.3); Mean Corpuscular Hemoglobin 33.3 pg (27-33); Mean Corpuscular Hgb Conc 33.6 g/dL (31-36); Mean Corpuscular Volume 99.1 fL (80-97); Mean Platelet Volume 7.5 fL (7.5-11.2); Platelet Count 534 10^3/uL (150-450); Red Blood Count 3.12 10^6/uL (4.06-5.63); White Blood Count 12.6 10^3/uL (3.6-10.2)
[2024-03-01 07:42] LABS: ABS Eosinophils 0.6 10^3/uL (0.0-0.5); ABS Lymphocytes 0.9 10^3/uL (1.0-4.8); ABS Monocytes 1.7 10^3/uL (0.0-1.1); ABS Neutrophils 9.4 10^3/uL (1.5-7.6); ABS Nucleated RBC 0.02 10^3/ul; Eosinophil % 4.6 %; Lymphocyte % 7.1 %; Nucleated Red Blood Cells % 0.1 %/100WBC (0.0-0.8)
[2024-03-01 07:50] LABS: Calcium 7.8 mg/dL (8.6-10.3); Creatinine, Serum 1.36 mg/dL (0.67-1.17); Magnesium 2.2 mg/dL (1.9-2.7); Potassium 4.8 mmol/L (3.5-5.0); eGFR CKD-EPI 52.3 (>60)
[2024-03-01] MEDS: Gadoteridol (CONTRAST) 279.3 MG/ML 10 ML IV ONE (21:58)
[2024-03-02 08:01] LABS: Calcium 7.9 mg/dL (8.6-10.3); Creatinine, Serum 1.2 mg/dL (0.67-1.17); Potassium 4.7 mmol/L (3.5-5.0); eGFR CKD-EPI 60.8 (>60)
[2024-03-02] MEDS: DAPTOMYCIN IVPB SCH (16:01)
[2024-03-02] MEDS: NS 0.9% IVPB SCH ×2 (16:01→18:29)
[2024-03-02] MEDS: CEFTAROLINE IVPB SCH (18:29)
[2024-03-03] MEDS: Morphine 2 MG/ML SYRINGE IV PRN (04:30)
[2024-03-03 09:24] LABS: Calcium 8.3 mg/dL (8.6-10.3); Creatinine, Serum 1.11 mg/dL (0.67-1.17); eGFR CKD-EPI 66.7 (>60)
[2024-03-04] MEDS: hydrALAZINE 20 mg/ml 1 ML Vial IV IV SLOW PU ONE (02:23)
[2024-03-04] MEDS ORDERED: Vancomycin per Pharmacy 1 EA NOTE FOLLOW UP SCH (12:00)
[2024-03-04] MEDS: fentaNYL 100 mcg/2 ml 50 MCG/ML VIAL ONE (12:02)
[2024-03-04 12:19] LABS: Body Fluid Appearance Bloody; Body Fluid Color Red
[2024-03-04 12:49] LABS: Body Fluid Total Nucleated 31292 /mcL
[2024-03-04] MEDS: Vancomycin 1,250 MG IV x ONCE IVPB ONE (13:59)
[2024-03-04 14:23] LABS: C Reactive Protein 75.83 mg/L (<8.01)
[2024-03-04 14:24] LABS: Body Fluid Mono 58 %; Body Fluid Total Cells Counted 200
[2024-03-05] MEDS: Vancomycin 750 MG in NS 0.9% 250 ML IVPB SCH (00:09)
[2024-03-05 07:14] LABS: Hematocrit 31.4 % (38-53); Hemoglobin 10.5 g/dL (13.2-16.3); Mean Corpuscular Hemoglobin 33.2 pg (27-33); Mean Corpuscular Hgb Conc 33.5 g/dL (31-36); Mean Corpuscular Volume 98.9 fL (80-97); Platelet Count 682 10^3/uL (150-450); Red Blood Count 3.17 10^6/uL (4.06-5.63)
[2024-03-05 07:38] LABS: Albumin 2.5 g/dL (3.2-5.2); Albumin/Globulin Ratio 0.9 (1-3); Calcium 8.4 mg/dL (8.6-10.3); Creatinine, Serum 1.2 mg/dL (0.67-1.17); Globulin 2.9 g/dL (2-4); Magnesium 1.7 mg/dL (1.9-2.7); Potassium 5.1 mmol/L (3.5-5.0); Total Protein 5.4 g/dL (6.4-8.9); eGFR CKD-EPI 60.8 (>60)
[2024-03-05] MEDS: Magnesium Sulfate IV 1GM/100ML 1 GM/100 ML BAG IV ONE (09:56)
[2024-03-05] MEDS ORDERED: Dextrose 50% Syringe 50 ml 25 GM/50 ML SYRINGE IV PUSH PRN (21:52)
[2024-03-06 07:47] LABS: ABS Basophils 0.1 10^3/uL (0.0-0.1); ABS Eosinophils 0.5 10^3/uL (0.0-0.5); ABS Lymphocytes 0.8 10^3/uL (1.0-4.8); ABS Monocytes 1.3 10^3/uL (0.0-1.1); ABS Neutrophils 7.5 10^3/uL (1.5-7.6); ABS Nucleated RBC 0.01 10^3/ul; Eosinophil % 5.3 %; Hemoglobin 11.2 g/dL (13.2-16.3); Lymphocyte % 8.1 %; Mean Corpuscular Hgb Conc 33.1 g/dL (31-36); Mean Corpuscular Volume 99.6 fL (80-97); Mean Platelet Volume 7.6 fL (7.5-11.2); Nucleated Red Blood Cells % 0.1 %/100WBC (0.0-0.8); Platelet Count 645 10^3/uL (150-450); Red Blood Count 3.41 10^6/uL (4.06-5.63); Red Cell Distribution Width 15.1 % (12-17); White Blood Count 10.3 10^3/uL (3.6-10.2)
[2024-03-06 08:02] LABS: Albumin 2.8 g/dL (3.2-5.2); Albumin/Globulin Ratio 0.8 (1-3); Calcium 8.4 mg/dL (8.6-10.3); Creatinine, Serum 1.27 mg/dL (0.67-1.17); Globulin 3.3 g/dL (2-4); Magnesium 1.9 mg/dL (1.9-2.7); Phosphorus 5.1 mg/dL (2.5-5.0); Potassium 5.4 mmol/L (3.5-5.0); Total Bilirubin 0.9 mg/dL (0.2-1.0); Total Protein 6.1 g/dL (6.4-8.9); eGFR CKD-EPI 56.8 (>60)
[2024-03-06] MEDS: Lidocaine PATCH 5% PATCH TRANSDERM SCH (09:11)
[2024-03-06 12:09] LABS: Creatinine, Serum 1.3 mg/dL (0.67-1.17); Vancomycin Trough 13.6 mcg/mL; eGFR CKD-EPI 55.2 (>60)
[2024-03-06] MEDS: Vancomycin Trough Check NOTE FOLLOW UP ONE (13:34)
[2024-03-06 15:55] LABS: Calcium 8.2 mg/dL (8.6-10.3); Creatinine, Serum 1.27 mg/dL (0.67-1.17); Potassium 5.4 mmol/L (3.5-5.0); eGFR CKD-EPI 56.8 (>60)
[2024-03-07 06:41] LABS: Calcium 8.3 mg/dL (8.6-10.3); Creatinine, Serum 1.22 mg/dL (0.67-1.17); Potassium 5.1 mmol/L (3.5-5.0); eGFR CKD-EPI 59.6 (>60)
[2024-03-07 10:08] VITALS: BP 106/66
== END 2024-03-07 10:09 | DRG 871 ==
LOC: EDHOLD 11:43 → ED 11:43 → SUATTDRO 22:13 → MED 02-22 10:55 → SUATTDRO 02-23 09:09
PROVIDERS: ADMIT Internal Medicine; ATTEND Internal Medicine
PROC: O.CATEE (2024-02-26 12:30)

== ENCOUNTER 2024-03-07 08:17 | Inpatient (IN) ==
[2024-03-07] MEDS ORDERED: Dextrose 50% Syringe 50 ml 25 GM/50 ML SYRINGE IV PUSH PRN (13:07)
[2024-03-07] MEDS ORDERED: Vancomycin per Pharmacy 1 EA NOTE FOLLOW UP SCH (14:00)
[2024-03-07] MEDS: Vancomycin 750 MG in NS 0.9% 250 ML IVPB SCH (16:43)
[2024-03-07] MEDS: Morphine ER 15 mg TAB ** extended release PO SCH (21:51)
[2024-03-07] MEDS: Enoxaparin 30 MG/0.3 ML SYR SUBCUT SCH (21:51)
[2024-03-07] MEDS: Insulin GLARGINE 100 un/ml 10 ml VIAL SUBCUT SCH (22:32)
[2024-03-08] MEDS: Aspirin EC 325 mg TAB.EC PO SCH (10:07)
[2024-03-08] MEDS: COVID VAC 23-24(12+)(Moderna) SYR 0.5 ML IM ONE (10:08)
[2024-03-08] MEDS: Vancomycin Trough Check NOTE FOLLOW UP ONE (14:08)
[2024-03-08] MEDS: Senna TAB 8.6 mg TAB PO PRN (21:06)
[2024-03-09 06:50] LABS: ABS Basophils 0.2 10^3/uL (0.0-0.1); ABS Eosinophils 0.4 10^3/uL (0.0-0.5); ABS Lymphocytes 0.9 10^3/uL (1.0-4.8); ABS Neutrophils 4.8 10^3/uL (1.5-7.6); ABS Nucleated RBC 0.01 10^3/ul; Eosinophil % 5.9 %; Hematocrit 27.3 % (38-53); Hemoglobin 9.4 g/dL (13.2-16.3); Lymphocyte % 12.2 %; Mean Corpuscular Hemoglobin 33.8 pg (27-33); Mean Corpuscular Hgb Conc 34.4 g/dL (31-36); Mean Corpuscular Volume 98.3 fL (80-97); Mean Platelet Volume 7.4 fL (7.5-11.2); Nucleated Red Blood Cells % 0.1 %/100WBC (0.0-0.8); Platelet Count 484 10^3/uL (150-450); Red Blood Count 2.78 10^6/uL (4.06-5.63); Red Cell Distribution Width 14.7 % (12-17); White Blood Count 7.3 10^3/uL (3.6-10.2)
[2024-03-09 09:55] LABS: Albumin 2.6 g/dL (3.2-5.2); Albumin/Globulin Ratio 0.9 (1-3); C Reactive Protein 85.39 mg/L (<8.01); Calcium 8.1 mg/dL (8.6-10.3); Creatinine, Serum 1.29 mg/dL (0.67-1.17); Globulin 2.8 g/dL (2-4); Potassium 4.7 mmol/L (3.5-5.0); Total Bilirubin 0.6 mg/dL (0.2-1.0); Total Protein 5.4 g/dL (6.4-8.9); eGFR CKD-EPI 55.7 (>60)
[2024-03-10 07:19] LABS: ABS Basophils 0.1 10^3/uL (0.0-0.1); ABS Eosinophils 0.3 10^3/uL (0.0-0.5); ABS Monocytes 1.2 10^3/uL (0.0-1.1); ABS Neutrophils 4.4 10^3/uL (1.5-7.6); ABS Nucleated RBC 0.01 10^3/ul; Eosinophil % 4.7 %; Hematocrit 29.2 % (38-53); Hemoglobin 9.8 g/dL (13.2-16.3); Lymphocyte % 14.1 %; Mean Corpuscular Hgb Conc 33.6 g/dL (31-36); Mean Corpuscular Volume 98.2 fL (80-97); Mean Platelet Volume 7.7 fL (7.5-11.2); Nucleated Red Blood Cells % 0.1 %/100WBC (0.0-0.8); Platelet Count 489 10^3/uL (150-450); Red Blood Count 2.97 10^6/uL (4.06-5.63); White Blood Count 7.1 10^3/uL (3.6-10.2)
[2024-03-10] MEDS: Vancomycin Trough Check NOTE FOLLOW UP ONE (14:05)
[2024-03-11 13:58] LABS: Calcium 8.2 mg/dL (8.6-10.3); Creatinine, Serum 1.34 mg/dL (0.67-1.17); Potassium 4.4 mmol/L (3.5-5.0); eGFR CKD-EPI 53.2 (>60)
[2024-03-11] MEDS: Iodixanol (CONTRAST) 320 MG/ML 100 ML SDV IV ONE (15:55)
[2024-03-16 06:07] LABS: Hematocrit 29.4 % (38-53); Hemoglobin 9.9 g/dL (13.2-16.3); Mean Corpuscular Hemoglobin 32.9 pg (27-33); Mean Corpuscular Hgb Conc 33.7 g/dL (31-36); Mean Corpuscular Volume 97.5 fL (80-97); Mean Platelet Volume 7.1 fL (7.5-11.2); Platelet Count 471 10^3/uL (150-450); Red Blood Count 3.02 10^6/uL (4.06-5.63); White Blood Count 5.2 10^3/uL (3.6-10.2)
[2024-03-16 06:24] LABS: Albumin/Globulin Ratio 0.8 (1-3); Creatinine, Serum 1.21 mg/dL (0.67-1.17); Globulin 3.7 g/dL (2-4); Potassium 4.4 mmol/L (3.5-5.0); Total Bilirubin 0.4 mg/dL (0.2-1.0); Total Protein 6.7 g/dL (6.4-8.9); eGFR CKD-EPI 60.2 (>60)
[2024-03-16 06:44] LABS: ABS Basophils 0.2 10^3/uL (0.0-0.1); ABS Eosinophils 0.5 10^3/uL (0.0-0.5); ABS Lymphocytes 0.9 10^3/uL (1.0-4.8); ABS Monocytes 1.2 10^3/uL (0.0-1.1); ABS Neutrophils 2.5 10^3/uL (1.5-7.6); ABS Nucleated RBC 0.01 10^3/ul; Eosinophil % 9.6 %; Lymphocyte % 17.4 %; Nucleated Red Blood Cells % 0.1 %/100WBC (0.0-0.8)
[2024-03-16 12:24] LABS: C Reactive Protein 54.67 mg/L (<8.01)
[2024-03-16] MEDS: Magnesium Hydroxide LIQ 30 ML UDC PO PRN (23:31)
[2024-03-17] MEDS: Vancomycin 750 MG in NS 0.9% 250 ML IVPB SCH (19:49)
[2024-03-18 06:34] VITALS: BP 169/88
== END 2024-03-18 13:25 | disposition home or self-care (01) | DRG 372 ==
LOC: PMRU 11:23
PROVIDERS: ADMIT Physical Medicine & Rehabilitation; ATTEND Physical Medicine & Rehabilitation

== ENCOUNTER 2024-03-30 14:34 | Inpatient (IN) ==
[2024-03-30] MEDS: Acetaminophen IV 1 GM/100ML 1,000 MG/100 ML BAG IV ONE (16:25)
[2024-03-30 16:46] LABS: ABS Basophils 0.2 10^3/uL (0.0-0.1); ABS Eosinophils 0.2 10^3/uL (0.0-0.5); ABS Lymphocytes 0.8 10^3/uL (1.0-4.8); ABS Monocytes 1.2 10^3/uL (0.0-1.1); ABS Neutrophils 6.8 10^3/uL (1.5-7.6); ABS Nucleated RBC 0.01 10^3/ul; Eosinophil % 2.6 %; Hematocrit 31.2 % (38-53); Hemoglobin 10.4 g/dL (13.2-16.3); Lymphocyte % 9.1 %; Mean Corpuscular Hemoglobin 31.8 pg (27-33); Mean Corpuscular Hgb Conc 33.4 g/dL (31-36); Mean Corpuscular Volume 95.2 fL (80-97); Mean Platelet Volume 6.8 fL (7.5-11.2); Nucleated Red Blood Cells % 0.1 %/100WBC (0.0-0.8); Platelet Count 582 10^3/uL (150-450); Red Blood Count 3.27 10^6/uL (4.06-5.63); Red Cell Distribution Width 15.3 % (12-17); White Blood Count 9.2 10^3/uL (3.6-10.2)
[2024-03-30 17:53] LABS: Albumin 3.3 g/dL (3.2-5.2); Albumin/Globulin Ratio 0.9 (1-3); C Reactive Protein 55.99 mg/L (<8.01); Calcium 8.4 mg/dL (8.6-10.3); Creatinine, Serum 1.41 mg/dL (0.67-1.17); Globulin 3.5 g/dL (2-4); Potassium 4.5 mmol/L (3.5-5.0); Total Bilirubin 0.7 mg/dL (0.2-1.0); Total Protein 6.8 g/dL (6.4-8.9); eGFR CKD-EPI 50.1 (>60)
[2024-03-30] MEDS ORDERED: Vancomycin per Pharmacy 1 EA NOTE FOLLOW UP PRN (22:19)
[2024-03-30] MEDS: Enoxaparin 40 MG/0.4 ML SYR SUBCUT SCH (22:53)
[2024-03-30] MEDS: Vancomycin 500 MG in NS 0.9% 250 ML IVPB SCH (22:55)
[2024-03-30] MEDS: Acetaminophen IV 1 GM/100ML 1,000 MG/100 ML BAG IV PRN (23:36)
[2024-03-31] MEDS ORDERED: Dextrose 50% Syringe 50 ml 25 GM/50 ML SYRINGE IV PUSH PRN ×2 (06:52→07:23)
[2024-03-31 07:42] LABS: Creatinine, Serum 1.44 mg/dL (0.67-1.17); Potassium 4.5 mmol/L (3.5-5.0); eGFR CKD-EPI 48.8 (>60)
[2024-03-31] MEDS: Morphine ER 15 mg TAB ** extended release PO SCH (09:14)
[2024-03-31] MEDS: Calcium Carb (TUMS) 500 mg CHEW TAB PO SCH (09:17)
[2024-03-31] MEDS: Vancomycin Trough Check NOTE FOLLOW UP ONE (11:09)
[2024-03-31] MEDS: Senna TAB 8.6 mg TAB PO SCH (20:08)
[2024-04-01 06:30] LABS: ABS Basophils 0.1 10^3/uL (0.0-0.1); ABS Eosinophils 0.6 10^3/uL (0.0-0.5); ABS Lymphocytes 0.8 10^3/uL (1.0-4.8); ABS Neutrophils 4.6 10^3/uL (1.5-7.6); Eosinophil % 8.2 %; Hematocrit 29.4 % (38-53); Hemoglobin 9.9 g/dL (13.2-16.3); Lymphocyte % 11.6 %; Mean Corpuscular Hemoglobin 31.9 pg (27-33); Mean Corpuscular Hgb Conc 33.7 g/dL (31-36); Mean Corpuscular Volume 94.5 fL (80-97); Mean Platelet Volume 6.7 fL (7.5-11.2); Nucleated Red Blood Cells % 0.1 %/100WBC (0.0-0.8); Platelet Count 550 10^3/uL (150-450); Red Blood Count 3.11 10^6/uL (4.06-5.63); Red Cell Distribution Width 15.1 % (12-17); White Blood Count 7.1 10^3/uL (3.6-10.2)
[2024-04-01] MEDS ORDERED: cefTRIAXone 1 gm/50 mL D5W 1 GM/50 ML BAG IV SCH (07:00)
[2024-04-01 07:35] LABS: Calcium 8.3 mg/dL (8.6-10.3); Creatinine, Serum 1.14 mg/dL (0.67-1.17); Magnesium 2.1 mg/dL (1.9-2.7); Potassium 4.5 mmol/L (3.5-5.0); eGFR CKD-EPI 64.6 (>60)
[2024-04-01] MEDS: Polyethylene Glycol 3350 17 GM PACKET PO SCH (08:29)
[2024-04-02 06:06] LABS: ABS Basophils 0.1 10^3/uL (0.0-0.1); ABS Eosinophils 0.6 10^3/uL (0.0-0.5); ABS Lymphocytes 0.8 10^3/uL (1.0-4.8); ABS Monocytes 1.1 10^3/uL (0.0-1.1); ABS Neutrophils 5.7 10^3/uL (1.5-7.6); Hematocrit 28.7 % (38-53); Hemoglobin 9.4 g/dL (13.2-16.3); Lymphocyte % 10.1 %; Mean Corpuscular Hemoglobin 31.3 pg (27-33); Mean Corpuscular Hgb Conc 32.6 g/dL (31-36); Mean Platelet Volume 6.5 fL (7.5-11.2); Platelet Count 525 10^3/uL (150-450); Red Blood Count 2.99 10^6/uL (4.06-5.63); Red Cell Distribution Width 15.2 % (12-17); White Blood Count 8.2 10^3/uL (3.6-10.2)
[2024-04-02 06:51] LABS: Creatinine, Serum 1.22 mg/dL (0.67-1.17); Magnesium 1.9 mg/dL (1.9-2.7); Potassium 4.9 mmol/L (3.5-5.0); eGFR CKD-EPI 59.6 (>60)
[2024-04-02] MEDS: Iodixanol (CONTRAST) 320 MG/ML 100 ML SDV IV ONE (16:31)
[2024-04-03 05:07] LABS: ABS Eosinophils 0.1 10^3/uL (0.0-0.5); ABS Lymphocytes 0.5 10^3/uL (1.0-4.8); ABS Monocytes 0.7 10^3/uL (0.0-1.1); ABS Neutrophils 9.3 10^3/uL (1.5-7.6); ABS Nucleated RBC 0.02 10^3/ul; Eosinophil % 1.2 %; Hematocrit 31.9 % (38-53); Hemoglobin 10.3 g/dL (13.2-16.3); Lymphocyte % 4.4 %; Mean Corpuscular Hgb Conc 32.4 g/dL (31-36); Mean Corpuscular Volume 95.7 fL (80-97); Mean Platelet Volume 6.7 fL (7.5-11.2); Nucleated Red Blood Cells % 0.1 %/100WBC (0.0-0.8); Platelet Count 540 10^3/uL (150-450); Red Blood Count 3.33 10^6/uL (4.06-5.63); Red Cell Distribution Width 15.2 % (12-17); White Blood Count 10.7 10^3/uL (3.6-10.2)
[2024-04-03 05:38] LABS: % Iron Saturation 7 % (15-55); .Transferrin 203 mg/dL (203-362); Anion Gap 5 mmol/L (2-16); Blood Urea Nitrogen 33 mg/dL (6-24); CO2 Carbon Dioxide 36 mmol/L (22-32); Calcium 8.7 mg/dL (8.6-10.3); Chloride 95 mmol/L (101-111); Creatinine, Serum 1.23 mg/dL (0.67-1.17); Glucose 159 mg/dL (70-100); Iron < 20 ug/dL (50-212); Potassium 4.3 mmol/L (3.5-5.0); Sodium 136 mmol/L (135-145); Total Iron Binding Capacity 284 mcg/dL (250-450); Transferrin 203 mg/dL (203-362); Unsaturated Iron Binding 264 ug/dL
[2024-04-03] MEDS ORDERED: Ondansetron 4 mg VIAL 2 MG/ML 2 ml VIAL IV PRN (07:21)
[2024-04-03] MEDS: Lactated Ringers 1000 ml BAG 1,000 ML IV ONE (14:06)
[2024-04-04 04:47] LABS: ABS Basophils 0.1 10^3/uL (0.0-0.1); ABS Eosinophils 0.7 10^3/uL (0.0-0.5); ABS Monocytes 0.9 10^3/uL (0.0-1.1); ABS Neutrophils 5.3 10^3/uL (1.5-7.6); ABS Nucleated RBC 0.01 10^3/ul; Calcium 7.9 mg/dL (8.6-10.3); Creatinine, Serum 1.29 mg/dL (0.67-1.17); Eosinophil % 9.4 %; Hematocrit 26.3 % (38-53); Hemoglobin 8.7 g/dL (13.2-16.3); Lymphocyte % 12.7 %; Magnesium 1.8 mg/dL (1.9-2.7); Mean Corpuscular Hemoglobin 31.6 pg (27-33); Mean Corpuscular Hgb Conc 33.1 g/dL (31-36); Mean Corpuscular Volume 95.4 fL (80-97); Mean Platelet Volume 7.2 fL (7.5-11.2); Nucleated Red Blood Cells % 0.1 %/100WBC (0.0-0.8); Platelet Count 427 10^3/uL (150-450); Potassium 4.9 mmol/L (3.5-5.0); Red Blood Count 2.76 10^6/uL (4.06-5.63); Red Cell Distribution Width 15.2 % (12-17); White Blood Count 7.9 10^3/uL (3.6-10.2); eGFR CKD-EPI 55.7 (>60)
[2024-04-04 10:25] LABS: Vancomycin Trough 18.6 mcg/mL
[2024-04-04] MEDS: Vancomycin Trough Check NOTE FOLLOW UP ONE (13:58)
[2024-04-04] MEDS: Vancomycin 1000 MG in NS 0.9% 250 ML IVPB SCH (14:07)
[2024-04-04] MEDS: Magnesium Sulfate 2 gm BAG 2 GM/50 ML BAG IVPB ONE (14:08)
[2024-04-05 05:44] LABS: ABS Basophils 0.1 10^3/uL (0.0-0.1); ABS Eosinophils 0.9 10^3/uL (0.0-0.5); ABS Lymphocytes 0.7 10^3/uL (1.0-4.8); ABS Monocytes 1.1 10^3/uL (0.0-1.1); ABS Neutrophils 6.3 10^3/uL (1.5-7.6); ABS Nucleated RBC 0.01 10^3/ul; Eosinophil % 9.7 %; Hematocrit 27.5 % (38-53); Hemoglobin 9.2 g/dL (13.2-16.3); Lymphocyte % 8.2 %; Mean Corpuscular Hemoglobin 32.1 pg (27-33); Mean Corpuscular Hgb Conc 33.6 g/dL (31-36); Mean Corpuscular Volume 95.6 fL (80-97); Mean Platelet Volume 7.2 fL (7.5-11.2); Nucleated Red Blood Cells % 0.1 %/100WBC (0.0-0.8); Platelet Count 444 10^3/uL (150-450); Red Blood Count 2.88 10^6/uL (4.06-5.63); Red Cell Distribution Width 15.4 % (12-17)
[2024-04-05 07:01] LABS: Calcium 8.2 mg/dL (8.6-10.3); Creatinine, Serum 1.15 mg/dL (0.67-1.17); Potassium 4.8 mmol/L (3.5-5.0); eGFR CKD-EPI 63.9 (>60)
[2024-04-05 12:59] LABS: Rapid COVID-19 Molecular Undetected (Undetected)
[2024-04-05 14:01] VITALS: BP 97/59
[2024-04-05 14:58] LABS: C Reactive Protein 25.48 mg/L (<8.01)
[2024-04-05] MEDS: Vancomycin 1,000 MG in NS 0.9% 250 ml 250 ML IVPB ONE (16:21)
[2024-04-08] MEDS ORDERED: Vancomycin Trough Check NOTE FOLLOW UP ONE (12:30)
== END 2024-04-05 14:45 | disposition swing bed (61) | DRG 551 ==
LOC: EDHOLD 14:34 → ED 14:34 → SUATTDRO 21:07 → MED 03-31 15:20 → SUATTDRO 04-01 12:34
PROVIDERS: ADMIT Internal Medicine; ATTEND Student in an Organized Health Care Education/Training Program

== ENCOUNTER 2024-05-30 12:28 | Inpatient (IN) ==
[2024-05-30] MEDS: Ondansetron 4 mg VIAL 2 MG/ML 2 ml VIAL IV ONE (13:40)
[2024-05-30] MEDS: Lactated Ringers 1000 ml BAG 1,000 ML IV ONE (13:40)
[2024-05-30 13:55] LABS: ABS Basophils 0.1 10^3/uL (0.0-0.1); ABS Lymphocytes 0.7 10^3/uL (1.0-4.8); ABS Monocytes 0.8 10^3/uL (0.0-1.1); ABS Neutrophils 13.5 10^3/uL (1.5-7.6); Eosinophil % 0.1 %; Hematocrit 33.5 % (38-53); Hemoglobin 10.7 g/dL (13.2-16.3); Lymphocyte % 4.4 %; Mean Corpuscular Hemoglobin 28.8 pg (27-33); Mean Corpuscular Hgb Conc 31.8 g/dL (31-36); Mean Corpuscular Volume 90.5 fL (80-97); Mean Platelet Volume 7.6 fL (7.5-11.2); Platelet Count 301 10^3/uL (150-450); Red Blood Count 3.71 10^6/uL (4.06-5.63); White Blood Count 15.1 10^3/uL (3.6-10.2)
[2024-05-30 15:15] LABS: ALT 12 U/L (7-52); Albumin 3.4 g/dL (3.2-5.2); Albumin/Globulin Ratio 1.3 (1-3); Alkaline Phosphatase 71 U/L (35-149); Anion Gap 7 mmol/L (2-16); Blood Urea Nitrogen 46 mg/dL (6-24); C Reactive Protein 6.19 mg/L (<8.01); CO2 Carbon Dioxide 37 mmol/L (22-32); Calcium 8.5 mg/dL (8.6-10.3); Chloride 93 mmol/L (101-111); Creatinine, Serum 1.22 mg/dL (0.67-1.17); Globulin 2.6 g/dL (2-4); Glucose 138 mg/dL (70-100); Sodium 137 mmol/L (135-145); eGFR CKD-EPI 59.2 (>60)
[2024-05-30] MEDS: Iodixanol (CONTRAST) 320 MG/ML 100 ML SDV IV ONE (16:25)
[2024-05-30] MEDS ORDERED: Ondansetron 4 mg VIAL 2 MG/ML 2 ml VIAL IV PRN (19:54)
[2024-05-30] MEDS ORDERED: Dextrose 50% Syringe 50 ml 25 GM/50 ML SYRINGE IV PUSH PRN (19:57)
[2024-05-30] MEDS ORDERED: Metoprolol Tartrate 5 mg VIAL 5 ml VIAL (1 mg/ml) IV PRN (19:59)
[2024-05-30] MEDS: cefTRIAXone 1 gm/50 mL D5W 1 GM/50 ML BAG IV SCH (21:38)
[2024-05-30] MEDS: Insulin GLARGINE 100 un/ml 10 ml VIAL SUBCUT SCH (21:48)
[2024-05-30] MEDS: Lactated Ringers 1000 ml BAG 1,000 ML IV SCH (21:48)
[2024-05-30] MEDS: metroNIDAZOLE IV 500 MG/100ML 500 MG/100 ML BAG IVPB SCH (21:48)
[2024-05-30] MEDS: Pantoprazole VIAL 40 MG VIAL IV SCH (21:48)
[2024-05-30] MEDS: cefTRIAXone 2 gm/50 mL D5W 2 GM/50 ML BAG IV SCH (21:57)
[2024-05-30 22:07] LABS: Potassium Redraw 3.7 mmol/L (3.5-5.0)
[2024-05-31] MEDS: metroNIDAZOLE IV 500 MG/100ML 500 MG/100 ML BAG IVPB SCH (06:05)
[2024-05-31 06:49] LABS: ABS Basophils 0.1 10^3/uL (0.0-0.1); ABS Eosinophils 0.1 10^3/uL (0.0-0.5); ABS Lymphocytes 0.9 10^3/uL (1.0-4.8); ABS Monocytes 1.1 10^3/uL (0.0-1.1); ABS Neutrophils 8.7 10^3/uL (1.5-7.6); Eosinophil % 1.4 %; Hematocrit 28.8 % (38-53); Hemoglobin 9.6 g/dL (13.2-16.3); Lymphocyte % 7.9 %; Mean Corpuscular Hemoglobin 30.5 pg (27-33); Mean Corpuscular Hgb Conc 33.4 g/dL (31-36); Mean Corpuscular Volume 91.1 fL (80-97); Mean Platelet Volume 7.4 fL (7.5-11.2); Platelet Count 249 10^3/uL (150-450); Red Blood Count 3.16 10^6/uL (4.06-5.63); Red Cell Distribution Width 16.9 % (12-17); White Blood Count 10.8 10^3/uL (3.6-10.2)
[2024-05-31 07:22] LABS: Albumin/Globulin Ratio 1.3 (1-3); Calcium 7.9 mg/dL (8.6-10.3); Creatinine, Serum 1.01 mg/dL (0.67-1.17); Globulin 2.4 g/dL (2-4); Magnesium 1.9 mg/dL (1.9-2.7); Phosphorus 3.4 mg/dL (2.5-5.0); Potassium 3.6 mmol/L (3.5-5.0); Total Bilirubin 0.8 mg/dL (0.2-1.0); Total Protein 5.4 g/dL (6.4-8.9); eGFR CKD-EPI 74.3 (>60)
[2024-05-31] MEDS ORDERED: Magnesium Hydroxide LIQ 30 ML UDC PO PRN (09:03)
[2024-05-31] MEDS ORDERED: Senna TAB 8.6 mg TAB PO PRN (09:03)
[2024-05-31] MEDS ORDERED: Polyethylene Glycol 3350 17 GM PACKET PO PRN (09:03)
[2024-05-31] MEDS: Magnesium Hydroxide LIQ 30 ML UDC PO SCH (09:25)
[2024-05-31] MEDS ORDERED: Midazolam 5 mg/5 ml VIAL 1 mg/ml 5 ml VIAL (5 mg) ONE (16:15)
[2024-05-31] MEDS ORDERED: fentaNYL 100 mcg/2 ml 50 MCG/ML VIAL ONE (16:15)
[2024-05-31] MEDS: cefTRIAXone 2 gm/50 mL D5W 2 GM/50 ML BAG IV SCH (21:00)
[2024-06-01 06:34] LABS: Hemoglobin 9.7 g/dL (13.2-16.3); Mean Corpuscular Hemoglobin 29.4 pg (27-33); Mean Corpuscular Hgb Conc 32.3 g/dL (31-36); Mean Corpuscular Volume 91.1 fL (80-97); Mean Platelet Volume 7.5 fL (7.5-11.2); Platelet Count 257 10^3/uL (150-450); Red Blood Count 3.29 10^6/uL (4.06-5.63); Red Cell Distribution Width 16.7 % (12-17); White Blood Count 10.8 10^3/uL (3.6-10.2)
[2024-06-01 07:15] LABS: Albumin/Globulin Ratio 1.3 (1-3); C Reactive Protein 9.3 mg/L (<8.01); Calcium 8.3 mg/dL (8.6-10.3); Creatinine, Serum 0.92 mg/dL (0.67-1.17); Direct Bilirubin 0.1 mg/dL (0.03-0.18); Globulin 2.4 g/dL (2-4); Indirect Bilirubin 0.7 mg/dL (0.3-1.0); Total Bilirubin 0.8 mg/dL (0.2-1.0); Total Protein 5.4 g/dL (6.4-8.9); eGFR CKD-EPI 83.1 (>60)
[2024-06-01] MEDS: CALCIUM GLUCONATE 1GM/50ML NS 1 GM/50 ML BAG IV ONE (09:19)
[2024-06-01 11:48] LABS: Calcium 8.5 mg/dL (8.6-10.3); Creatinine, Serum 0.88 mg/dL (0.67-1.17); Potassium 3.9 mmol/L (3.5-5.0); eGFR CKD-EPI 85.9 (>60)
[2024-06-01 12:23] LABS: Albumin 3.1 g/dL (3.2-5.2)
[2024-06-01] MEDS: Metoprolol Tartrate 5 mg VIAL 5 ml VIAL (1 mg/ml) IV PRN (17:43)
[2024-06-02 06:05] LABS: Hematocrit 29.1 % (38-53); Hemoglobin 9.5 g/dL (13.2-16.3); Mean Corpuscular Hemoglobin 29.7 pg (27-33); Mean Corpuscular Hgb Conc 32.7 g/dL (31-36); Mean Corpuscular Volume 90.8 fL (80-97); Mean Platelet Volume 7.7 fL (7.5-11.2); Platelet Count 237 10^3/uL (150-450); Red Cell Distribution Width 16.8 % (12-17); White Blood Count 10.5 10^3/uL (3.6-10.2)
[2024-06-02 06:24] LABS: C Reactive Protein 13.72 mg/L (<8.01); Calcium 8.2 mg/dL (8.6-10.3); Creatinine, Serum 0.9 mg/dL (0.67-1.17); Magnesium 2.1 mg/dL (1.9-2.7); Phosphorus 3.1 mg/dL (2.5-5.0); Potassium 3.8 mmol/L (3.5-5.0); eGFR CKD-EPI 85.3 (>60)
[2024-06-02] MEDS ORDERED: Metoprolol Tartrate 5 mg VIAL 5 ml VIAL (1 mg/ml) IV SCH (16:00)
[2024-06-02] MEDS: Metoprolol Tartrate 5 mg VIAL 5 ml VIAL (1 mg/ml) IV SCH ×2 (17:33→20:41)
[2024-06-02] MEDS: Enalaprilat IV 1.25 mg/ml 1 ml VIAL (1.25 MG) IV SCH (17:36)
[2024-06-03] MEDS: Enalaprilat IV 1.25 mg/ml 1 ml VIAL (1.25 MG) IV SCH ×3 (01:37→14:05)
[2024-06-03 06:58] LABS: Hematocrit 31.4 % (38-53); Hemoglobin 10.4 g/dL (13.2-16.3); Mean Corpuscular Hemoglobin 30.2 pg (27-33); Mean Corpuscular Hgb Conc 33.2 g/dL (31-36); Mean Corpuscular Volume 91.1 fL (80-97); Mean Platelet Volume 8.2 fL (7.5-11.2); Platelet Count 251 10^3/uL (150-450); Red Blood Count 3.45 10^6/uL (4.06-5.63); Red Cell Distribution Width 16.7 % (12-17); White Blood Count 9.1 10^3/uL (3.6-10.2)
[2024-06-03 07:16] LABS: Calcium 8.1 mg/dL (8.6-10.3); Creatinine, Serum 0.91 mg/dL (0.67-1.17); Magnesium 1.9 mg/dL (1.9-2.7); Phosphorus 3.6 mg/dL (2.5-5.0); Potassium 3.9 mmol/L (3.5-5.0); eGFR CKD-EPI 84.1 (>60)
[2024-06-03] MEDS ORDERED: Enalaprilat IV 1.25 mg/ml 1 ml VIAL (1.25 MG) IV SCH (14:00)
[2024-06-03 15:43] LABS: Albumin/Globulin Ratio 1.3 (1-3); Calcium 7.9 mg/dL (8.6-10.3); Creatinine, Serum 0.91 mg/dL (0.67-1.17); Globulin 2.4 g/dL (2-4); Magnesium 1.9 mg/dL (1.9-2.7); Phosphorus 4.2 mg/dL (2.5-5.0); Total Bilirubin 0.9 mg/dL (0.2-1.0); Total Protein 5.4 g/dL (6.4-8.9); eGFR CKD-EPI 84.1 (>60)
[2024-06-03] MEDS: TPN 24 HR with Dextrose 50% Water 500 ML, Amino Acid Infusion 10% 850 ML, Sterile Water... CENT\\PICC SCH (18:07)
[2024-06-04 06:10] LABS: ABS Basophils 0.1 10^3/uL (0.0-0.1); ABS Eosinophils 0.5 10^3/uL (0.0-0.5); ABS Lymphocytes 0.9 10^3/uL (1.0-4.8); ABS Monocytes 1.5 10^3/uL (0.0-1.1); ABS Neutrophils 5.9 10^3/uL (1.5-7.6); ABS Nucleated RBC 0.01 10^3/ul; Eosinophil % 5.7 %; Hematocrit 29.1 % (38-53); Hemoglobin 9.8 g/dL (13.2-16.3); Mean Corpuscular Hemoglobin 30.2 pg (27-33); Mean Corpuscular Hgb Conc 33.6 g/dL (31-36); Mean Platelet Volume 7.6 fL (7.5-11.2); Nucleated Red Blood Cells % 0.1 %/100WBC (0.0-0.8); Platelet Count 209 10^3/uL (150-450); Red Blood Count 3.24 10^6/uL (4.06-5.63); Red Cell Distribution Width 16.4 % (12-17); White Blood Count 8.8 10^3/uL (3.6-10.2)
[2024-06-04 06:17] LABS: INR 1.44 (0.85-1.14)
[2024-06-04 06:56] LABS: Albumin 2.8 g/dL (3.2-5.2); Albumin/Globulin Ratio 1.2 (1-3); Calcium 7.9 mg/dL (8.6-10.3); Creatinine, Serum 0.9 mg/dL (0.67-1.17); Globulin 2.3 g/dL (2-4); Magnesium 1.8 mg/dL (1.9-2.7); Potassium 3.7 mmol/L (3.5-5.0); Total Bilirubin 0.6 mg/dL (0.2-1.0); Total Protein 5.1 g/dL (6.4-8.9); eGFR CKD-EPI 85.3 (>60)
[2024-06-04 08:24] LABS: C Reactive Protein 28.74 mg/L (<8.01)
[2024-06-04] MEDS: Enoxaparin 40 MG/0.4 ML SYR SUBCUT SCH (10:47)
[2024-06-04] MEDS: Magnesium Sulfate 2 gm BAG 2 GM/50 ML BAG IVPB ONE (11:43)
[2024-06-04] MEDS: Enalaprilat IV 1.25 mg/ml 1 ml VIAL (1.25 MG) IV SCH (16:34)
[2024-06-04] MEDS: TPN 24 HR with Dextrose 50% Water 500 ML, Amino Acid Infusion 10% 850 ML, Sterile Water... CENT\\PICC SCH (17:36)
[2024-06-04] MEDS: Insulin GLARGINE 100 un/ml 10 ml VIAL SUBCUT SCH (22:07)
[2024-06-05 06:08] LABS: ABS Basophils 0.1 10^3/uL (0.0-0.1); ABS Eosinophils 0.9 10^3/uL (0.0-0.5); ABS Monocytes 1.1 10^3/uL (0.0-1.1); ABS Neutrophils 3.6 10^3/uL (1.5-7.6); ABS Nucleated RBC 0.01 10^3/ul; Eosinophil % 13.2 %; Hematocrit 29.4 % (38-53); Hemoglobin 9.9 g/dL (13.2-16.3); Lymphocyte % 14.8 %; Mean Corpuscular Hemoglobin 30.4 pg (27-33); Mean Corpuscular Hgb Conc 33.7 g/dL (31-36); Mean Corpuscular Volume 90.1 fL (80-97); Mean Platelet Volume 8.1 fL (7.5-11.2); Nucleated Red Blood Cells % 0.1 %/100WBC (0.0-0.8); Platelet Count 215 10^3/uL (150-450); Red Blood Count 3.26 10^6/uL (4.06-5.63); Red Cell Distribution Width 16.6 % (12-17); White Blood Count 6.7 10^3/uL (3.6-10.2)
[2024-06-05 06:37] LABS: Albumin 2.8 g/dL (3.2-5.2); Albumin/Globulin Ratio 1.2 (1-3); Creatinine, Serum 0.77 mg/dL (0.67-1.17); Globulin 2.4 g/dL (2-4); Phosphorus 3.2 mg/dL (2.5-5.0); Total Bilirubin 0.3 mg/dL (0.2-1.0); Total Protein 5.2 g/dL (6.4-8.9); eGFR CKD-EPI 89.4 (>60)
[2024-06-06 06:21] LABS: Hematocrit 29.9 % (38-53); Hemoglobin 9.8 g/dL (13.2-16.3); Mean Corpuscular Hemoglobin 29.7 pg (27-33); Mean Corpuscular Hgb Conc 32.6 g/dL (31-36); Mean Platelet Volume 7.9 fL (7.5-11.2); Platelet Count 240 10^3/uL (150-450); Red Blood Count 3.29 10^6/uL (4.06-5.63); Red Cell Distribution Width 16.7 % (12-17); White Blood Count 6.4 10^3/uL (3.6-10.2)
[2024-06-06 08:01] LABS: Calcium 8.2 mg/dL (8.6-10.3); Creatinine, Serum 0.77 mg/dL (0.67-1.17); Magnesium 1.8 mg/dL (1.9-2.7); Phosphorus 3.1 mg/dL (2.5-5.0); Potassium 4.3 mmol/L (3.5-5.0); eGFR CKD-EPI 89.4 (>60)
[2024-06-06] MEDS ORDERED: Acetaminophen IV 1 GM/100ML 920 MG/92 ML BAG IV PRN (10:55)
[2024-06-06] MEDS: Magnesium Sulfate 2 GM IV (Premix) IVPB ONE (11:16)
[2024-06-07 07:11] LABS: Hematocrit 28.9 % (38-53); Hemoglobin 9.8 g/dL (13.2-16.3); Mean Corpuscular Hemoglobin 30.7 pg (27-33); Mean Corpuscular Hgb Conc 33.9 g/dL (31-36); Mean Corpuscular Volume 90.6 fL (80-97); Mean Platelet Volume 8.3 fL (7.5-11.2); Platelet Count 232 10^3/uL (150-450); Red Blood Count 3.19 10^6/uL (4.06-5.63); Red Cell Distribution Width 16.8 % (12-17); White Blood Count 6.9 10^3/uL (3.6-10.2)
[2024-06-07 07:26] LABS: Calcium 8.2 mg/dL (8.6-10.3); Creatinine, Serum 0.8 mg/dL (0.67-1.17); Magnesium 1.8 mg/dL (1.9-2.7); Potassium 4.3 mmol/L (3.5-5.0); eGFR CKD-EPI 88.4 (>60)
[2024-06-07] MEDS: Morphine 2 MG/ML SYRINGE IV PRN (09:06)
[2024-06-07] MEDS: Magnesium Sulfate 2 gm BAG 2 GM/50 ML BAG IVPB ONE (12:58)
[2024-06-07 19:17] LABS: Albumin 2.9 g/dL (3.2-5.2); Albumin/Globulin Ratio 1.2 (1-3); Calcium 8.1 mg/dL (8.6-10.3); Creatinine, Serum 0.75 mg/dL (0.67-1.17); Globulin 2.5 g/dL (2-4); Magnesium 2.2 mg/dL (1.9-2.7); Phosphorus 3.4 mg/dL (2.5-5.0); Potassium 4.2 mmol/L (3.5-5.0); Total Bilirubin 0.5 mg/dL (0.2-1.0); Total Protein 5.4 g/dL (6.4-8.9); eGFR CKD-EPI 90.1 (>60)
[2024-06-07] MEDS: ceFAZolin 1 GM ADVAN 1 GM ADDV.VIAL IVPB ONE (19:43)
[2024-06-07] MEDS: Midazolam 2 mg/2 ml VIAL 1 mg/ml 2 ml VIAL (2 mg) ONE (19:43)
[2024-06-07] MEDS: Bupivacaine 0.25% SDV PF 10 ML VIAL INJ ONE (19:43)
[2024-06-07] MEDS: Glucagon 1 mg VIAL KIT ONE (19:44)
[2024-06-07] MEDS: fentaNYL 100 mcg/2 ml 50 MCG/ML VIAL ONE ×2 (19:44→19:45)
[2024-06-07] MEDS: Lidocaine 2% JELLY 6 ML Topical TOPICAL ONE (19:44)
[2024-06-07] MEDS: Acetaminophen IV 1 GM/100ML 920 MG/92 ML BAG IV PRN (21:36)
[2024-06-08 06:02] LABS: Hematocrit 30.4 % (38-53); Mean Corpuscular Hgb Conc 33.1 g/dL (31-36); Mean Corpuscular Volume 90.7 fL (80-97); Mean Platelet Volume 8.2 fL (7.5-11.2); Platelet Count 250 10^3/uL (150-450); Red Blood Count 3.35 10^6/uL (4.06-5.63); White Blood Count 6.1 10^3/uL (3.6-10.2)
[2024-06-08] MEDS ORDERED: Naloxone 0.4 mg VIAL 0.4 mg/ml 1 ml VIAL IV PUSH PRN (12:24)
[2024-06-08] MEDS ORDERED: Flumazenil 0.5 mg/5 ml 0.1 MG/ML 5 ml VIAL IV PRN (12:24)
[2024-06-08 15:09] LABS: Urine Appearance Clear; Urine Bilirubin Negative (Negative); Urine Blood Trace (Negative); Urine Color Yellow; Urine Glucose Negative (Negative); Urine Ketones Negative (Negative); Urine Nitrite Negative (Negative); Urine Protein Negative (Negative); Urine Urobilinogen Negative (Negative); Urine pH 5.5 (5.0-8.0)
[2024-06-08 15:17] LABS: Urine Bacteria Absent /HPF (Absent); Urine Red Blood Cell 3+(>10/hpf) /HPF (0-Trace); Urine White Blood Cell 3+(>20/hpf) /HPF (0-Trace)
[2024-06-08 21:35] LABS: Hematocrit 31.7 % (38-53); Hemoglobin 10.4 g/dL (13.2-16.3); Mean Corpuscular Hemoglobin 29.7 pg (27-33); Mean Corpuscular Hgb Conc 32.7 g/dL (31-36); Mean Corpuscular Volume 90.8 fL (80-97); Mean Platelet Volume 7.8 fL (7.5-11.2); Platelet Count 257 10^3/uL (150-450); Red Blood Count 3.49 10^6/uL (4.06-5.63); Red Cell Distribution Width 17.3 % (12-17); White Blood Count 6.4 10^3/uL (3.6-10.2)
[2024-06-08] MEDS: Midazolam 10 mg/10 ml VIAL 1 mg/ml 10 ml VIAL (10 mg) IV SLOW PU ONE (21:43)
[2024-06-08] MEDS: fentaNYL 100 mcg/2 ml 50 MCG/ML VIAL IV SLOW PU ONE (21:43)
[2024-06-08] MEDS: Metoprolol Tartrate 5 mg VIAL 5 ml VIAL (1 mg/ml) IV SCH (22:09)
[2024-06-09 06:14] LABS: ABS Basophils 0.1 10^3/uL (0.0-0.1); ABS Eosinophils 0.6 10^3/uL (0.0-0.5); ABS Lymphocytes 0.9 10^3/uL (1.0-4.8); ABS Monocytes 0.9 10^3/uL (0.0-1.1); ABS Neutrophils 3.5 10^3/uL (1.5-7.6); Eosinophil % 10.5 %; Hematocrit 30.9 % (38-53); Hemoglobin 9.9 g/dL (13.2-16.3); Lymphocyte % 14.9 %; Mean Corpuscular Hemoglobin 29.4 pg (27-33); Mean Corpuscular Hgb Conc 32.2 g/dL (31-36); Mean Corpuscular Volume 91.4 fL (80-97); Mean Platelet Volume 8.1 fL (7.5-11.2); Nucleated Red Blood Cells % 0.1 %/100WBC (0.0-0.8); Platelet Count 266 10^3/uL (150-450); Red Blood Count 3.38 10^6/uL (4.06-5.63); Red Cell Distribution Width 17.3 % (12-17); White Blood Count 6.1 10^3/uL (3.6-10.2)
[2024-06-09 06:47] LABS: Calcium 8.2 mg/dL (8.6-10.3); Creatinine, Serum 0.77 mg/dL (0.67-1.17); Potassium 4.4 mmol/L (3.5-5.0); eGFR CKD-EPI 89.4 (>60)
[2024-06-09 12:58] LABS: Magnesium 1.7 mg/dL (1.9-2.7); Phosphorus 3.9 mg/dL (2.5-5.0)
[2024-06-09] MEDS: KCL 20 MEQ/100 ML IVPREMIX 20 MEQ/100 ML BAG IV ONE (13:19)
[2024-06-09] MEDS: Magnesium Sulfate 2 gm BAG 2 GM/50 ML BAG IVPB ONE (15:46)
[2024-06-10 07:26] LABS: ABS Basophils 0.1 10^3/uL (0.0-0.1); ABS Eosinophils 0.6 10^3/uL (0.0-0.5); ABS Lymphocytes 0.7 10^3/uL (1.0-4.8); ABS Neutrophils 4.4 10^3/uL (1.5-7.6); ABS Nucleated RBC 0.01 10^3/ul; Eosinophil % 8.6 %; Hematocrit 28.1 % (38-53); Hemoglobin 9.3 g/dL (13.2-16.3); Lymphocyte % 10.7 %; Mean Corpuscular Hemoglobin 30.3 pg (27-33); Mean Corpuscular Hgb Conc 33.3 g/dL (31-36); Mean Corpuscular Volume 91.1 fL (80-97); Mean Platelet Volume 8.3 fL (7.5-11.2); Nucleated Red Blood Cells % 0.2 %/100WBC (0.0-0.8); Platelet Count 252 10^3/uL (150-450); Red Blood Count 3.08 10^6/uL (4.06-5.63); Red Cell Distribution Width 16.8 % (12-17); White Blood Count 6.9 10^3/uL (3.6-10.2)
[2024-06-10 07:40] LABS: Creatinine, Serum 0.88 mg/dL (0.67-1.17); Phosphorus 4.1 mg/dL (2.5-5.0); Potassium 4.8 mmol/L (3.5-5.0); eGFR CKD-EPI 85.9 (>60)
[2024-06-10] MEDS: Lansoprazole SUSP ORALSYR 3 MG/ML PO SCH (08:24)
[2024-06-11 06:01] LABS: ABS Basophils 0.1 10^3/uL (0.0-0.1); ABS Eosinophils 0.5 10^3/uL (0.0-0.5); ABS Lymphocytes 0.8 10^3/uL (1.0-4.8); ABS Neutrophils 3.2 10^3/uL (1.5-7.6); ABS Nucleated RBC 0.01 10^3/ul; Eosinophil % 8.1 %; Lymphocyte % 14.7 %; Mean Corpuscular Hemoglobin 29.4 pg (27-33); Mean Corpuscular Hgb Conc 32.1 g/dL (31-36); Mean Corpuscular Volume 91.5 fL (80-97); Nucleated Red Blood Cells % 0.1 %/100WBC (0.0-0.8); Platelet Count 257 10^3/uL (150-450); Red Blood Count 3.06 10^6/uL (4.06-5.63); Red Cell Distribution Width 17.4 % (12-17); White Blood Count 5.6 10^3/uL (3.6-10.2)
[2024-06-11 06:13] LABS: Albumin 2.8 g/dL (3.2-5.2); Albumin/Globulin Ratio 1.2 (1-3); Calcium 7.9 mg/dL (8.6-10.3); Creatinine, Serum 0.87 mg/dL (0.67-1.17); Globulin 2.4 g/dL (2-4); Potassium 4.8 mmol/L (3.5-5.0); Total Bilirubin 0.4 mg/dL (0.2-1.0); Total Protein 5.2 g/dL (6.4-8.9); eGFR CKD-EPI 86.1 (>60)
[2024-06-11 11:14] LABS: Magnesium 1.9 mg/dL (1.9-2.7); Phosphorus 3.8 mg/dL (2.5-5.0)
[2024-06-11] MEDS: Senna TAB 8.6 mg TAB PO SCH (20:28)
[2024-06-12 05:38] LABS: Hematocrit 27.6 % (38-53); Hemoglobin 9.2 g/dL (13.2-16.3); Mean Corpuscular Hemoglobin 30.4 pg (27-33); Mean Corpuscular Hgb Conc 33.4 g/dL (31-36); Mean Platelet Volume 7.9 fL (7.5-11.2); Platelet Count 273 10^3/uL (150-450); Red Blood Count 3.04 10^6/uL (4.06-5.63); White Blood Count 6.4 10^3/uL (3.6-10.2)
[2024-06-12 06:25] LABS: Calcium 7.8 mg/dL (8.6-10.3); Creatinine, Serum 0.83 mg/dL (0.67-1.17); Magnesium 1.9 mg/dL (1.9-2.7); Phosphorus 3.4 mg/dL (2.5-5.0); Potassium 4.9 mmol/L (3.5-5.0); eGFR CKD-EPI 87.4 (>60)
[2024-06-12 06:25] LABS: Albumin 2.9 g/dL (3.2-5.2); Albumin/Globulin Ratio 1.2 (1-3); Calcium 7.7 mg/dL (8.6-10.3); Creatinine, Serum 0.85 mg/dL (0.67-1.17); Globulin 2.4 g/dL (2-4); Magnesium 1.9 mg/dL (1.9-2.7); Phosphorus 3.5 mg/dL (2.5-5.0); Potassium 4.8 mmol/L (3.5-5.0); Total Bilirubin 0.4 mg/dL (0.2-1.0); Total Protein 5.3 g/dL (6.4-8.9); eGFR CKD-EPI 86.8 (>60)
[2024-06-12] MEDS: Polyethylene Glycol 3350 17 GM PACKET PO SCH (08:18)
[2024-06-12] MEDS: Enoxaparin 30 MG/0.3 ML SYR SUBCUT SCH (14:19)
[2024-06-13] MEDS: COVID VAC 24-25 (12+) (Moderna) Syringe 0.5 mL IM ONE (14:10)
[2024-06-13] MEDS ORDERED: Lidocaine PATCH 5% PATCH TRANSDERM PRN (14:49)
[2024-06-13] MEDS: Morphine ER 15 mg TAB ** extended release PO SCH (15:46)
[2024-06-14 06:00] LABS: ABS Basophils 0.1 10^3/uL (0.0-0.1); ABS Eosinophils 0.5 10^3/uL (0.0-0.5); ABS Lymphocytes 0.8 10^3/uL (1.0-4.8); ABS Monocytes 0.9 10^3/uL (0.0-1.1); ABS Neutrophils 4.5 10^3/uL (1.5-7.6); ABS Nucleated RBC 0.01 10^3/ul; Eosinophil % 7.5 %; Hematocrit 29.4 % (38-53); Hemoglobin 9.7 g/dL (13.2-16.3); Lymphocyte % 12.2 %; Mean Corpuscular Hemoglobin 29.9 pg (27-33); Mean Corpuscular Hgb Conc 33.1 g/dL (31-36); Mean Corpuscular Volume 90.4 fL (80-97); Nucleated Red Blood Cells % 0.1 %/100WBC (0.0-0.8); Platelet Count 335 10^3/uL (150-450); Red Blood Count 3.26 10^6/uL (4.06-5.63); Red Cell Distribution Width 16.8 % (12-17); White Blood Count 6.9 10^3/uL (3.6-10.2)
[2024-06-14 06:50] LABS: Albumin 3.2 g/dL (3.2-5.2); Albumin/Globulin Ratio 1.2 (1-3); Creatinine, Serum 0.84 mg/dL (0.67-1.17); Globulin 2.7 g/dL (2-4); Potassium 4.9 mmol/L (3.5-5.0); Total Bilirubin 0.5 mg/dL (0.2-1.0); Total Protein 5.9 g/dL (6.4-8.9); eGFR CKD-EPI 87.1 (>60)
[2024-06-15 07:22] LABS: Albumin 3.1 g/dL (3.2-5.2); Albumin/Globulin Ratio 1.2 (1-3); Calcium 7.8 mg/dL (8.6-10.3); Creatinine, Serum 0.89 mg/dL (0.67-1.17); Globulin 2.6 g/dL (2-4); Phosphorus 3.6 mg/dL (2.5-5.0); Potassium 4.9 mmol/L (3.5-5.0); Total Bilirubin 0.5 mg/dL (0.2-1.0); Total Protein 5.7 g/dL (6.4-8.9); eGFR CKD-EPI 85.6 (>60)
[2024-06-15 08:31] VITALS: BP 136/88
[2024-06-15] MEDS: Influenza Vaccine *TRI* 2024-25* 0.5 ML SYRINGE IM ONE (08:55)
[2024-06-15] MEDS: Lansoprazole SUSP ORALSYR 3 MG/ML PO SCH (09:51)
== END 2024-06-15 10:30 | disposition home or self-care (01) | DRG 380 ==
LOC: ED 12:28 → EDHOLD 12:28 → OBSVTOIN 17:43 → INTOOBSV 17:43 → SUATTDRO 17:43 → MED 05-31 01:30
PROVIDERS: ADMIT Internal Medicine; ATTEND Student in an Organized Health Care Education/Training Program